=== PATIENT | male | born 1975 | race African-American/Black ===

== ENCOUNTER 2019-07-01 03:46 | Inpatient (IN) | payer OTHER ==
[~2019-07-01] VITALS: Ht 165.1 cm; Wt 115.7 kg
--- NOTE | ~2019-07-01 | EMS ---
[address] [address] EMS Patient Care Report Name: VI HERNÁNDEZ Room #: 170-9 ADM IN M.R.#: [id number] Admission: 07/01/19 Attend Phys: Fidelina Haddad MD Discharge: Date of : 75 Report #: [id number] THIS REPORT FOR: //name// Report Transmitted: 07/01/2019 05:03 EMS Care Summary [place], [place]/[facility] Incident [id number] @ 07/01/2019 03:02 Incident Location [id number] [place] [address] 105 A Patient VI HERNÁNDEZ Male, 43 Years 1975 Patient Address [address] [place] [address] [place] [address] Patient History Diabetes,Hypertension,Schizophrenia,Hypothyroidism, Patient Allergies No known allergies, Patient Medications Glipizide, Gabapentin, Lisinopril, Levothyroxine, Metoprolol, Famotidine, Divalproex Sodium, Benztropine, Sertraline, Aspirin, Clonazepam, Lorazepam, Haloperidol, Ferrous Sulfate, Chief Complaint ABNORMAL LABS, DIARRHEA Disposition Transported No Lights/[place] Dispatch Reason Sick Person Transported To [facility] Narrative PT FOUND LYING IN BED. STAFF STATES PT HAS ABNORMAL LABS, HAS HAD DIARRHEA AND [address] [address] EMS Patient Care Report Name: VI HERNÁNDEZ Room #: 170-9 ADM IN M.R.#: [id number] Admission: 07/01/19 Attend Phys: Fidelina Haddad MD Discharge: Date of : 75 Report #: [id number] HAD AN SPO2 OF 87%. PT FOUND TO HAVE SPO2 OF 97%. PT DENIES OTHER COMPLAINTS. TRANSPORTED WITHOUT INCIDENT. Initial Vitals @03:32P: 124,R: 18,BP: 110/60,Pain: 0/10,GCS: 14,SpO2: 97,Revised Trauma: 12, Assessments @03:24MENTAL:No Abnormalities,SKIN:No Abnormalities,HEENT:Head/Face: No Abnormalities,Eyes: No Abnormalities,Neck/Airway: No Abnormalities,LUNG SOUNDS:ABDOMEN:PELVIS//GI:EXTREMITIES:PULSE:NEURO:No Abnormalities, Impression Generalized Weakness Procedures @03:24ALS AssessmentResponse: UnchangedSucceeded Timeline 03:00,Call Received 03:00,Dispatch Notified 03:02,Dispatched 03:05,En Route 03:21,On Scene 03:24,At Patient 03:24,ALS Assessment,Response: UnchangedSucceeded, 03:32,BP: 110/60 M,PULSE: 124,RR: 18 R,SPO2: 97 Ox,ETCO2: ,BG: ,PAIN: 0,GCS: 14, 03:34,Depart Scene 03:41,At Destination 03:51,Call Closed Disclaimer v1.1 Copyright 2019 [email or web address] This EMS Care Summary contains data elements from the applicable legal record (which may be displayed differently). It is designed to provide pertinent information for the following purposes: continuity of care, clinical quality, and state data reporting. The complete legal record is available to ED staff and administrators of the receiving hospital in [facility]'s Patient Tracker. All data is provided "as is."
[~2019-07-01 03:46] MED LIST: ACETAMINOPHEN325 M1 PO; ASPIRIN325 PO; BENZTROPINE MES1 MG PO; CALCIUM 500 WI1 EAC3 PO; CENTRUM SILVER1 EAC4 PO; CLOZAPINE100 M1 PO; CLOZAPINE25 MG PO; DEPAKOTE ER500 MG PO; DIABETA 5MG TABL5 MG PO; DIPHENHIST50 MG PO; FAMOTIDINE 20 M20 MG PO; FERROUS SULFAT325 M1 PO; HAIR, SKIN & N1 EAC1; HALOPERIDOL10 MG PO; HYDROXYZINE PAM25 M1 PO; IBUPROFEN 600600 M1 PO; LEVOTHYROXIN0.125 M1 PO; LOPRESSOR25 PO; LORAZEPAM 1 MG T1 M1 PO; LORAZEPAM 1 MG T1 MG PO; MAGOX 400400 MG PO; METOPROLOL SUCC25 M1 PO; MI ACID LIQUID355 ML PO; MIRALAX255 GM PO; NEURONTIN 300M300 M2 PO; ONE DAILY MULT1 EAC2 PO; SEROQUEL 25 MG25 M1 PO; SEROQUEL 25 MG25 M2 PO; TUMS PO; ZESTRIL10 MG PO
[2019-07-01 03:47] VITALS: BP 117/59
[2019-07-01 04:25] LABS: BE(vivo) -1.7 mmol/L (-2 to +3); HCO3 20.4 mmol/L (22.0-26.0); PCO2 27.4 mmHg (35.0-45.0); PO2 70.3 mmHg (80.0-100.0); pH 7.489 (7.360-7.450); sO2 95.5 % (92.0-98.0)
[2019-07-01 04:55] LABS: HEMOGLOBIN 12.3 gm/dL (14.0-18.0); MCH 27.1 pg (26.0-34.0); MCHC 33.1 g/dL (28.0-37.0); MCV 81.8 fL (80.0-100.0); PLATELET COUNT 64 thou/uL (150-400); RBC 4.52 mil/uL (4.50-6.00); RDW 15.7 % (10.5-14.5); WBC 9.4 thou/uL (4.0-11.0)
[2019-07-01 04:56] LABS: URINE BILIRUBIN 1+ (Negative); URINE BLOOD 3+ (Negative); URINE CLARITY CLOUDY; URINE COLOR YELLOW; URINE GLUCOSE-RANDOM* NEGATIVE (Negative); URINE KETONES TRACE (Negative); URINE NITRITE-REFLEX NEGATIVE (Negative); URINE PROTEIN (DIPSTICK) 2+ (Negative); URINE SPECIFIC GRAVITY 1.015 (1.005-1.035); URINE UROBILINOGEN 0.2 E.U./dl (0.2-1.0)
[2019-07-01 05:05] LABS: AMP/METHAMP Negative (Negative); BARBITURATES Negative (Negative); BENZODIAZEPINES Negative (Negative); COCAINE Negative (Negative); METHADONE Negative (Negative); OPIATES Negative (Negative); PCP Negative (Negative)
[2019-07-01 05:07] LABS: ANION GAP 15 mmol/L (7-16); BUN 23 mg/dL (7-18); CALCIUM 8.4 mg/dL (8.5-10.1); CHLORIDE 108 mmol/L (98-107); CO2 19 mmol/L (21-32); CREATININE 1.8 mg/dL (0.7-1.3); GLUCOSE 104 mg/dL (74-106); POTASSIUM 3.6 mmol/L (3.5-5.1); SODIUM 142 mmol/L (136-145)
[2019-07-01 05:07] LABS: URINE LEUKOCYTES-REFLEX 2+ (Negative)
[2019-07-01 05:18] LABS: ALBUMIN 2.6 g/dL (3.4-5.0); SGOT 63 U/L (15-37); SGPT 32 U/L (30-65); TOTAL BILIRUBIN 0.6 mg/dL (<0.1-1.0); TOTAL PROTEIN 6.7 g/dL (6.4-8.2); TROPONIN-I <0.06 ng/mL (<0.06)
[2019-07-01 05:33] LABS: BACTERIA-REFLEX >30 Many /HPF (None Seen); CRYSTALS None Seen /LPF (None Seen); HYALINE CASTS 0-3 Few /LPF (None Seen); MUCUS 4-6 Moderate strn/LPF (None Seen); SQUAMOUS 0-3 Few /LPF (0-3); URINE RBC 3-10 Few /HPF (0-2); WBC CLUMPS Few (None Seen)
[2019-07-01] MEDS ORDERED: LUPRON DEPOT3.75 MG IM (05:45)
[2019-07-01] MEDS ORDERED: NYSTATIN15 G1 TOP (05:46)
[2019-07-01] MEDS ORDERED: PREPARATION H26 GM TOP (05:47)
[2019-07-01] MEDS ORDERED: SERTRALINE HCL100 MG PO (05:51)
[2019-07-01] MEDS ORDERED: ELIQUIS2.5 MG PO (05:52)
[2019-07-01] MEDS ORDERED: GLIPIZIDE 10 MG10 MG PO (05:53)
[2019-07-01] MEDS ORDERED: LEVO-T100 MCG PO (05:54)
[2019-07-01 07:05] VITALS: BP 110/68
[2019-07-01 08:03] LABS: ABSOLUTE NEUTROPHILS 7.3 thou/uL (1.4-8.2); ANISOCYTOSIS 1+
--- NOTE | 2019-07-01 08:09 | EKG ---
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
--- NOTE | 2019-07-01 15:35 | NUR ---
PT ADMITED FROM ER. ALERT AND ORIENTED TO SELF. VERY RESTLESS. ORDERS NOTED. FALL PRECAUTION IMPLEMENTED. CONTACT ISOLATION ENFORCED. ST ON TELE. IV ABX GIVEN ORDERED. WILL CONTINUE TO MONITOR.
[2019-07-01 15:40] VITALS: BP 116/59
--- NOTE | 2019-07-01 18:32 | NUR ---
VAT CONSULTED FOR A PICC FOR THIS PT FOR SEPSIS. A 4FRDBLPICC PLACED RUABRACHIAL, TIP AT THE CAJ, PLEASE SEE THE INSERTION NI FOR DETAILS
[2019-07-01 19:55] VITALS: BP 126/72
[2019-07-02] VITALS (7 sets, daily range): BP systolic 99–135; BP diastolic 54–116
[2019-07-02 05:25] LABS: WBC 6.4 thou/uL (4.0-11.0)
[2019-07-02 05:27] LABS: HEMATOCRIT 29.3 % (42.0-52.0); MCH 27.2 pg (26.0-34.0); MCHC 32.9 g/dL (28.0-37.0); MCV 82.8 fL (80.0-100.0); PLATELET COUNT 47 thou/uL (150-400); RBC 3.55 mil/uL (4.50-6.00); RDW 16.1 % (10.5-14.5)
--- NOTE | 2019-07-02 05:39 | NUR ---
SHIFT NOTE: PATIENT RECEIVED IN BED AT 1900 DURING SHIFT CHANGE. NOTED DROWSEY. PER THE DAY NURSE SOME MEDS DURING THE DAY DUE TO AGITATION. ST ON THE MONITOR FOR THIS NIGHT. SUPERINTENDENT POWER PAGED AND ORDER FOR METOPROLOL X1 WITH SOMEWHAT EFFECT.NO OTHER CONCERN. MORNING MEDS HELD AND SUPERINTENDENT POWER NOTIFIED FOR PT NOTED HARD TO AROUSE. FALL PRECAUTIONS IN PLACE. WILL CONTINUE TO MONITOR.
[2019-07-02 05:52] LABS: CALCIUM 7.4 mg/dL (8.5-10.1); CREATININE 1.4 mg/dL (0.7-1.3); MAGNESIUM 1.7 mg/dL (1.8-2.4)
[2019-07-02 06:00] LABS: HEMOGLOBIN 9.6 gm/dL (14.0-18.0)
[2019-07-02 08:56] LABS: ABSOLUTE NEUTROPHILS 4.8 thou/uL (1.4-8.2); METAMYELOCYTES 1 %; PLATELET ESTIMATE MARKEDLY DECREASED
[2019-07-02 08:57] LABS: LARGE PLATELETS FEW
--- NOTE | 2019-07-02 09:48 | 2DMMODE ---
[facility] [address] [place] [address] 2 D/M-MODE ECHOCARDIOGRAM Name: VI HERNÁNDEZ Room #: 203-P ADM IN M.R.#: [id number] Admission: 07/01/19 Attend Phys: Glen Friend Discharge: Date of : 75 Report #: [id number] THIS REPORT FOR: //name// APPROVED REPORT Study performed: 07/02/2019 08:25:15 EXAM: Comprehensive 2D, Doppler, and color-flow Echocardiogram Patient Location: Bedside Room #: 203 Status: routine BSA: 2.19 HR: 103 bpm BP: 126/72 mmHg Rhythm: Tachycardia Other Information Study Quality: Adequate Technically limited study due to inability to position patient. Risk Factors: Cardiac Risk Factors: HTN, DM, Hyperlipidemia, Smoking Indications Dyspnea Evaluate for CHF 2D Dimensions IVSd: 11.12 (7-11mm) LVOT Diam: 23.00 (18-24mm) LVDd: 42.25 mm PWd: 10.89 (7-11mm) Ascending Ao: 27.65 (22-36mm) LVDs: 28.59 (25-40mm) Aortic Root: 27.08 mm LV Single Plane 4CH: 60.61 % LV Single Plane 2CH: 61.32 % Biplane EF: 61.7 % Volumes Left Atrial Volume (Systole) Single Plane 4CH: 34.78 mL Single Plane 2CH: 38.64 mL LA ESV Index: 22.00 mL/m2 Aortic Valve [facility] [address] [place] [address] 2 D/M-MODE ECHOCARDIOGRAM Name: BETTYIV Room #: 203-P ADM IN M.R.#: [id number] Admission: 07/01/19 Attend Phys: Glen Friend Discharge: Date of : 75 Report #: [id number] AoV Peak Narinder.: 1.58 m/s AO Peak Gr.: 10.01 mmHg Mitral Valve E/A Ratio: 1.2 MV Decel. Time: 189.51 ms MV E Max Narinder.: 1.04 m/s MV A Narinder.: 0.88 m/s MV PHT: 54.96 ms IVRT: 48.44 ms TDI E/Lateral E': 9.45 E/Medial E': 10.40 Medial E' Narinder.: 0.10 m/s Lateral E' Narinder.: 0.11 m/s Pulmonary Valve PV Peak Narinder.: 1.31 m/s PV Peak Gr.: 6.90 mmHg Pulmonary Vein P Vein S: 0.77 m/s P Vein A: 0.30 m/s P Vein D: 0.42 m/s P Vein A Dur.: 62.3 msec P Vein S/D Ratio: 1.83 Left Ventricle The left ventricle is normal size. There is normal LV segmental wall motion. Borderline concentric left ventricular hypertrophy. Left ventricular systolic function is normal. The left ventricular ejection fraction is within the normal range. LVEF is 60-65%. The left ventricular diastolic function is normal. Right Ventricle The right ventricle is normal size. The right ventricular systolic function is normal. Atria The left atrium size is normal. The right atrium size is normal. Aortic Valve The aortic valve is normal in structure. No aortic regurgitation is present. There is no aortic valvular stenosis. Mitral Valve The mitral valve is normal in structure. Trace mitral regurgitation. No evidence of mitral valve stenosis. [facility] [address] [address] 2 D/M-MODE ECHOCARDIOGRAM Name: VI HERNÁNDEZ Room #: 203-P ADM IN M.R.#: [id number] Admission: 07/01/19 Attend Phys: Glen Friend Discharge: Date of : 75 Report #: [id number] Tricuspid Valve The tricuspid valve is normal in structure. There is no tricuspid valve regurgitation noted. Pulmonic Valve The pulmonary valve is normal in structure. There is no pulmonic valvular regurgitation. Great Vessels The aortic root is normal in size. The ascending aorta is normal in size. IVC is not well visualized. Pericardium There is no pericardial effusion. <Conclusion> 1. Normal echocardiogram with Doppler. EF 65% 2. No pericardial effusion <ELECTRONICALLY SIGNED> By: Dean Sal MD, FACC 07/02/1948 7 7 Dean Sal MD, [facility] /INF
--- NOTE | 2019-07-02 11:12 | NUR ---
Nutrition: pt admitted with acute respiratory failure, PNA, diarrhea. Consult received for physician dx malnutrition-defer. Sleeping at present time but nsg reports unable to interview. Extensive psych hx, schizophrenia. Confused. No weight hx but current BMI 42, indicates extreme class 3 obesity. Per nsg when pt awake, he cleans his plate. Currently on regular diet with hx of DM but BG controlled at present. Would benefit from 2000 carb controlled diet to assist with calorie control as well. Place as low nutrition risk.
--- NOTE | 2019-07-02 15:18 | NUR ---
ASSESSMENT CHARTED. PT ORIENTED TO SELF. HAS BEEN SLEEPING MOST OF THE SHIFT. WORKED WITH PHYSICAL THERAPIST. FALL PRECAUTION ENFORCED. WILL CONTINUE TO MONITOR.
--- NOTE | 2019-07-02 19:01 | HC ---
[facility] [place] [address] CONSULTATION Name: VI HERNÁNDEZ Room #: 203-P [facility] IN .R.#: [id number] Admission: 07/01/19 Attend Phys: Fidelina Haddad MD Discharge: Date of : 75 Report #: [id number] THIS REPORT FOR: //name// CC: Fidelina Ernst DATE OF SERVICE: 07/01/2019 INFECTIOUS DISEASE CONSULTATION REASON FOR CONSULTATION: I was asked to evaluate concerning sepsis. HISTORY OF PRESENT ILLNESS: The patient was a 43-year-old [facility] resident transfers with complaints of diarrhea, found to be hypoxic and delirious. Brought into the Emergency Room. He has a history of schizophrenia, diabetes, hypertension. Further details are not available. Discussed with nursing at the bedside. The patient was obtunded. Did arouse, but not able to follow any commands. He has been incontinent of the stool. There has been no cough or sputum production. He has been on room air with adequate oxygen saturation. Full 10-point review of system was unable to be obtained due to his mental status. ALLERGIES: None known. MEDICATIONS: Reviewed and include Tylenol, Seroquel, aspirin, Pepcid, iron, Zestril, Depakote, MiraLax, Cogentin, allopurinol, lorazepam, Neurontin, Seroquel, multivitamin, calcium, clonazepam, metoprolol, ibuprofen, Lupron, sertraline, Eliquis, glipizide, levothyroxine. PAST MEDICAL HISTORY: Diabetes, depressive disorder, schizophrenia, hyperlipidemia, hypertension, hypothyroidism, BPH. Unclear why he is on Lupron, not evident in his past medical history. FAMILY HISTORY: Noncontributory. SOCIAL HISTORY: He is a smoker of cigarettes, uses alcohol, no other drugs reported. PHYSICAL EXAMINATION: VITAL SIGNS: His temperature was 103 degrees on presentation, currently 100.1, heart rate 121, blood pressure 126/72, respiratory rate was 20. GENERAL: He was obese. SKIN: Without lesion. Although he did have hypertrophic skin involving his left third toe and metatarsal region on the second toe and dorsal surface of the metatarsal region. No purulent discharge. No other skin lesions. No palpable [facility] [address] [place] [address] CONSULTATION Name: VI HERNÁNDEZ Room #: 203-P [facility] IN ..#: [id number] Admission: 07/01/19 Attend Phys: Fidelina Haddad MD Discharge: Date of : 75 Report #: [id number] adenopathy. HEENT: Eyes, without scleral icterus. Mouth without mucositis. Dentition in very poor repair. Multiple fractured teeth with evidence of dental caries. NECK: Supple. LUNGS: Clear. HEART: Regular, without murmur, gallop or rub. He was tachycardic. ABDOMEN: Soft and nontender with no hepatosplenomegaly or mass. Could not appreciate any spinal tenderness or CVA tenderness. GENITOURINARY: External genitalia unremarkable without mass or lesion. RECTAL: Not performed. He was incontinent of loose stool. EXTREMITIES: Without clubbing, cyanosis or edema. He moved all extremities. Strength appeared reasonable. Mood was obtunded, but would arouse. LABORATORY STUDIES: Reviewed. WBC 9. Hemoglobin 12, platelet count 64,000, 10% bands. ABG on room air, pO2 of 70, pCO2 of 27, pH 7.48. Sodium 142, potassium 3.6, bicarb 19, creatinine 1.8, bilirubin 0.6, AST 63, ALT 32. CPK 700. Troponin normal. Albumin at 2.6. Drug screen negative. Alcohol negative. Urinalysis, pyuria and bacteriuria. MRSA screen negative. RADIOLOGICAL STUDIES: Chest x-ray, basilar atelectasis. IMPRESSION: A 43-year-old with suspected sepsis, although his white count is normal. He does have a bandemia. He has encephalopathy in the setting of depression and schizophrenia, thrombocytopenia, acute kidney injury, rhabdomyolysis, elevated procalcitonin at 3.9. Evidence of urinary tract infection, hypoxia with basilar atelectasis and diarrhea. Unclear how Lupron fits into the treatment plan. I am suspecting the source of infection would be most likely urinary tract. RECOMMENDATIONS: CT of the abdomen and pelvis to assess for diarrhea and urinary tract to ensure no obstruction. Continue IV antibiotic therapy, fluid resuscitation, place Urbina catheter to further evaluate his urine output. Hold his Lupron until further information is gathered as to its purpose. Await cultures of urine and blood. I have discussed with nursing staff. We will follow laboratory studies repeat in the morning. <ELECTRONICALLY SIGNED> By: Mando Rudolph MD 07/02/191900 27 140 Mando Rudolph MD /nt
--- NOTE | 2019-07-03 05:06 | NUR ---
SHIFT NOTE: PATIENT RECEIVED IN BED. ALERT TO SELF. SLEEPING FOR THE MOST PART OF THE NIGHT BUT HAD SOME RESTLESSNESS WITH TREATMENT PER THE ORDER AND NOTED EFFECT. VITAL SIGN ORDERED WITH NO MAJOR CONCERN. PT REMOVED THE POPE AND HAD TO BE REPLACED AND TOLERATED WELL. NO OTHER CONCERN OR COMPLAINT. WILL CONTINUE WITH CURRENT POC AND TO MONITOR.
[2019-07-03 05:50] VITALS: BP 115/68
[2019-07-03 08:00] VITALS: BP 135/69
[2019-07-03 10:42] VITALS: BP 132/75
[2019-07-03 10:52] LABS: HEMATOCRIT 30.8 % (42.0-52.0); HEMOGLOBIN 9.9 gm/dL (14.0-18.0)
--- NOTE | 2019-07-03 13:59 | NUR ---
Case opened to follow for dc planning. Pt is a ltc resident at [facility]. He is disabled due to mental health issues and has a legal guardian for decision making. His guardian is the [facility] Public Administator. Large Animal Veterinarian has left a message in their general voice mail and with their in day cm to advise of possible dc back to the [facility] tomorrow. Message left for [facility] unit nurses regarding the pt's likely dc tomorrow. Large Animal Veterinarian attempted again this afternoon to contact his nurse directly but had to leave the message on the [facility] unit voicemail. Care team updated. Pt worked with therapy and can [place]
[2019-07-03 14:50] LABS: CALCIUM 8.2 mg/dL (8.5-10.1); CREATININE 1.2 mg/dL (0.7-1.3); POTASSIUM 3.7 mmol/L (3.5-5.1)
--- NOTE | 2019-07-03 15:08 | NUR ---
ASSESSMENT CHARTED. PT ALERT TO SELF. VSS. ST ON TELE. EVALUATED BY PHYSICAL THERAPIST. POPE D/C. APPETITE GOOD. PROGRESSING WELL TOWARD DISCHARGE GOAL. WILL CONTINUE TO MONITOR.
[2019-07-03 16:00] VITALS: BP 98/75
[2019-07-03 20:10] VITALS: BP 135/67
[2019-07-04 01:10] LABS: GLYCOHEMOGLOBIN (HGB A1C) 5.9 % (4.8-5.6)
--- NOTE | 2019-07-04 02:53 | NUR ---
CONFUSED.TRYING TO GET OUT OF BED SEVERAL TIMES AND VOIDED ON THE FLOOR.FEBRILE.TYLENOL GIVEN.BEDTIME BLOOD GLUCOSE IS 150;NO COVERAGE GIVEN.MONITOR SHOWS SR,ST.WILL CONTINUE POC.
[2019-07-04 03:15] LABS: HEMOGLOBIN 9.3 gm/dL (14.0-18.0); MCH 26.3 pg (26.0-34.0); MCHC 32.2 g/dL (28.0-37.0); MCV 81.8 fL (80.0-100.0); PLATELET COUNT 64 thou/uL (150-400); RBC 3.55 mil/uL (4.50-6.00); RDW 16.1 % (10.5-14.5); WBC 6.6 thou/uL (4.0-11.0)
[2019-07-04 03:53] LABS: ANISOCYTOSIS 1+; LARGE PLATELETS SEVERAL; PLATELET ESTIMATE DECREASED
[2019-07-04 05:36] VITALS: BP 120/83
[2019-07-04 07:05] VITALS: BP 131/85
[2019-07-04 11:45] VITALS: BP 118/63
--- NOTE | 2019-07-04 16:54 | NUR ---
ASSUMED CARE PT SHIFT CHANGE. ASSESSMENTS CHARTED. MEDS GIVEN PER OCT. PT ALERT TO SELF ONLY, CONFUSED, IMPULSIVE. TRIES TO GET OUT OF BED/CHAIR WITHOUT HELP. FALL PRECAUTIONS IN PLACE THROUGHOUT DAY. REORIENTED FREQUENTLY. PT PULLED PICC LINE OUT- IV TEAM NOTIFIED, PERIPHERAL PUT IN AND WRAPPED, IV CONTINUES TO BE IN. O2 SATS WNL ON ROOM AIR AND 2L O2. PT LOW 90S HIGH 80S- 2 L PUT ON, BUT SATS 92 AND ABOVE ON ROOM AIR. PT HAD INCONTINENT BM THIS SHIFT- SAMPLE SENT. PT CURRENTLY SITTING IN CHAIR WITH NO APPARENT NEEDS. WILL CONTINUE TO MONITOR AND FOLLOW POC.
[2019-07-04 19:26] VITALS: BP 132/76
--- NOTE | 2019-07-05 03:03 | NUR ---
CONFUSED.ON 1:1 SITTER.PATIENT HAS BEEN SLEEPING.REFUSED THE MIDNIGHT MEDS.O2 2L NC NEEDED.AFEBRILE.INCONTINENT.MONITOR SHOWS SR,ST.WILL CONTINUE POC.
[2019-07-05 04:55] VITALS: BP 148/62
[2019-07-05 07:23] LABS: ALBUMIN 1.8 g/dL (3.4-5.0); CALCIUM 8.2 mg/dL (8.5-10.1); CREATININE 1.1 mg/dL (0.7-1.3); POTASSIUM 3.4 mmol/L (3.5-5.1); TOTAL BILIRUBIN 0.5 mg/dL (<0.1-1.0); TOTAL PROTEIN 5.9 g/dL (6.4-8.2)
[2019-07-05 07:24] LABS: HEMATOCRIT 29.3 % (42.0-52.0); HEMOGLOBIN 9.4 gm/dL (14.0-18.0); MCH 26.4 pg (26.0-34.0); MCHC 32.3 g/dL (28.0-37.0); MCV 81.9 fL (80.0-100.0); RBC 3.57 mil/uL (4.50-6.00); WBC 7.7 thou/uL (4.0-11.0)
[2019-07-05 08:00] VITALS: BP 139/91
[2019-07-05 08:53] LABS: ABSOLUTE NEUTROPHILS 5.4 thou/uL (1.4-8.2)
[2019-07-05 08:54] LABS: ANISOCYTOSIS 1+; PLATELET COUNT 85 thou/uL (150-400)
--- NOTE | 2019-07-05 10:40 | NUR ---
Pt was sleeping. Hard to arousable. Did not take morning pill or eat breakfast. Temp 99 A. Will continue to monitor.
[2019-07-05 12:00] VITALS: BP 144/72
[2019-07-05 15:44] VITALS: BP 101/57
[2019-07-05 20:15] VITALS: BP 137/73
[2019-07-06 04:45] VITALS: BP 125/60
--- NOTE | 2019-07-06 07:17 | NUR ---
ASSUMED PT CARE AT 1900, VSS. PT WAS DROWSY BUT AROUSABLE AND FOLLOWS COMMANDS. PT SLEPT MOST OF THE NIGHT, THERE WAS A MOMENT HE REFUSED TELE MONITORING FOR A COUPLE HOURS BUT AGREED TO GET IT BACK ON AROUND 3AM. DUE TO PT'S INCONTINENCE, AN EXTERNAL MALE CATH WAS PLACED AND HE HAD 900ML OUT. PT IS STABLE, NO COMPLAINTS OF PAIN OR DISCOFORT, MEDS GIVEN PER MAR, WILL CONTINUE TO MONITOR
[2019-07-06 08:00] VITALS: BP 133/79
--- NOTE | 2019-07-06 09:16 | NUR ---
PATIENT CARE ASSUMED, ASSESSMENT CHARTED, VSS, PATIENT DROWSEY, DIFFICULT TO ROUSE. STATES NO NEEDS, WILL CONTINUE TO MONITOR.
[2019-07-06 11:42] LABS: HEMATOCRIT 30.3 % (42.0-52.0); HEMOGLOBIN 9.8 gm/dL (14.0-18.0); MCH 26.9 pg (26.0-34.0); MCHC 32.4 g/dL (28.0-37.0); MCV 83.2 fL (80.0-100.0); RBC 3.65 mil/uL (4.50-6.00); RDW 16.3 % (10.5-14.5); WBC 15.5 thou/uL (4.0-11.0)
[2019-07-06 11:48] VITALS: BP 118/59
[2019-07-06 11:57] LABS: CALCIUM 8.5 mg/dL (8.5-10.1); MAGNESIUM 1.7 mg/dL (1.8-2.4); POTASSIUM 3.5 mmol/L (3.5-5.1)
[2019-07-06 20:45] VITALS: BP 133/80
[2019-07-07 04:45] VITALS: BP 128/71
[2019-07-07 04:49] LABS: ALBUMIN 1.8 g/dL (3.4-5.0); CREATININE 0.9 mg/dL (0.7-1.3); MAGNESIUM 1.5 mg/dL (1.8-2.4); POTASSIUM 3.5 mmol/L (3.5-5.1); TOTAL BILIRUBIN 0.3 mg/dL (<0.1-1.0); TOTAL PROTEIN 5.3 g/dL (6.4-8.2)
--- NOTE | 2019-07-07 05:07 | NUR ---
ASSUMED PT CARE AT 1900 WITH CLIMATOLOGY PROFESSOR SIGN OF DISTRESS NOTED. PT IS ALERT BUT DROWSY. NO FAMILY AT BEDSIDE. ASSESSMENT COMPLETED AND DOCUMENTED. NO SIGN OF DISTRESS NOTED IN PT. PT IS STABLE. SCHEDULED MEDS ADMINISTERED TO PT. PT TOLERATED PO INTAKE. NO FURTHER NEEDS REQUESTED AT THIS TIME.
[2019-07-07 05:40] LABS: HEMATOCRIT 27.9 % (42.0-52.0); MCH 26.9 pg (26.0-34.0); MCHC 32.1 g/dL (28.0-37.0); MCV 83.6 fL (80.0-100.0); PLATELET COUNT 149 thou/uL (150-400); RBC 3.34 mil/uL (4.50-6.00); RDW 16.6 % (10.5-14.5); WBC 7.4 thou/uL (4.0-11.0)
[2019-07-07 06:56] LABS: ABSOLUTE NEUTROPHILS 4.1 thou/uL (1.4-8.2)
[2019-07-07 06:57] LABS: ANISOCYTOSIS 1+; PLATELET ESTIMATE DECREASED; POIKILOCYTOSIS 1+
[2019-07-07] MEDS ORDERED: AUGMENTIN 875-1 EACH PO (07:46)
[2019-07-07 08:00] VITALS: BP 126/85
--- NOTE | 2019-07-07 12:16 | NUR ---
PT DISCHARGING TODAY TO [facility] FAXED DC ORDERS/SUMMARY TO FACILITY SPOKE WITH CLEMENTE IN ADM SHE RECEIVED DC ORDERS AND ARRANGED TRANSPORTATION BY [facility] FOR 1400 TODAY. NOTIFIED THE PA'S OFFICE (ROOSEVELT WINTER) OF DC TODAY., UNIT NOTIFIED AND CHART COPY PER US. RN TO CALL REPORT TO [phone].
== END 2019-07-07 14:43 | DRG 871 ==
LOC: ER 03:46 → EROBS 05:23 → 2N 05:23
PROVIDERS: Internal Medicine; Nurse Practitioner; Specialist; Student in an Organized Health Care Education/Training Program; ADMIT Hospitalist
PROC: 02HV33Z Insertion of Infusion Device into Superior Vena Cava, Percutaneous Approach (ICD-10-PCS; principal; 2019-07-01)
PROC: B548ZZA Ultrasonography of Superior Vena Cava, Guidance (ICD-10-PCS; principal; 2019-07-01)
DX: A41.9 Sepsis, unspecified organism (principal); G93.41 Metabolic encephalopathy; J96.01 Acute respiratory failure with hypoxia; J18.9 Pneumonia, unspecified organism; N39.0 Urinary tract infection, site not specified; N17.9 Acute kidney failure, unspecified; M62.82 Rhabdomyolysis; E87.0 Hyperosmolality and hypernatremia; E87.2 Acidosis; E44.0 Moderate protein-calorie malnutrition; Z68.41 Body mass index [BMI] 40.0-44.9, adult; F32.9 Major depressive disorder, single episode, unspecified; F20.9 Schizophrenia, unspecified; E78.5 Hyperlipidemia, unspecified; E03.9 Hypothyroidism, unspecified; F17.210 Nicotine dependence, cigarettes, uncomplicated; N40.0 Benign prostatic hyperplasia without lower urinary tract symptoms; D69.6 Thrombocytopenia, unspecified; I12.9 Hypertensive chronic kidney disease with stage 1 through stage 4 chronic kidney disease, or unspecified chronic kidney disease; E11.22 Type 2 diabetes mellitus with diabetic chronic kidney disease; R65.20 Severe sepsis without septic shock; N18.3 Chronic kidney disease, stage 3 (moderate); D64.9 Anemia, unspecified; E87.8 Other disorders of electrolyte and fluid balance, not elsewhere classified; E87.6 Hypokalemia; E83.42 Hypomagnesemia; E83.51 Hypocalcemia; K52.9 Noninfective gastroenteritis and colitis, unspecified; B96.89 Other specified bacterial agents as the cause of diseases classified elsewhere; B96.4 Proteus (mirabilis) (morganii) as the cause of diseases classified elsewhere; Z79.899 Other long term (current) drug therapy; Z79.82 Long term (current) use of aspirin; Z86.711 Personal history of pulmonary embolism; Z79.01 Long term (current) use of anticoagulants
CPT/HCPCS: 10081; 10797; 27000

== ENCOUNTER 2020-12-08 17:58 | Inpatient (IN) | payer OTHER ==
[~2020-12-08] VITALS: Ht 172.7 cm; Wt 121.1 kg
--- NOTE | ~2020-12-08 | O ---
[facility] [place] [address] OPERATIVE REPORT Name: VI HERNÁNDEZ Room #: 239-P ADM IN M.R.#: [id number] Admission: 12/09/20 Attend Phys: Keily Garrison Lui Discharge: Date of : 75 Report #: [id number] THIS REPORT FOR: cc: Miguel Bello MD, Dennis R MD Patterson,Manuel Sykes MD ~ DATE OF SERVICE: 12/09/2020 PREOPERATIVE DIAGNOSIS: Left arm cellulitis. POSTOPERATIVE DIAGNOSIS: Left arm cellulitis. OPERATION: Incision and drainage of left arm. SURGEON: Manuel Castillo MD ANESTHESIA: General. ESTIMATED BLOOD LOSS: Minimal. SPECIMEN: Fluid for culture and sensitivity. DESCRIPTION OF PROCEDURE: The patient was brought to the operating room. He was placed supine. General anesthesia was induced. The left arm was prepped and draped in the usual sterile fashion. I made an approximately 6 cm incision over the left mid bicep. Cautery dissection was made down through the subcutaneous tissue. I made my way down to the fascia. There was no evidence of any necrotizing infection. There was no turbid or foul-smelling fluid. There was no abscess. I did culture some of the edema that was involved. The fascia at the biceps was incised and there was no necrotic tissue anywhere. This was fairly normal. The area was then irrigated with normal saline. It was packed with sterile gauze. Sterile dressings were applied. COMPLICATIONS: None. DISPOSITION: The patient was taken to recovery in satisfactory condition. By: 13 26 Manuel Castillo MD /nt
[~2020-12-08 17:58] MED LIST changes: +AUGMENTIN 875-1 EACH PO; +ELIQUIS2.5 MG PO; +GLIPIZIDE 10 MG10 MG PO; +LEVO-T100 MCG PO; +LUPRON DEPOT3.75 MG IM; +NYSTATIN15 G1 TOP; +PREPARATION H26 GM TOP; +SERTRALINE HCL100 MG PO
[2020-12-08 18:00] VITALS: BP 97/48
[2020-12-08 20:39] LABS: HEMATOCRIT 36.8 % (42.0-52.0); HEMOGLOBIN 12.2 gm/dL (14.0-18.0); MCH 27.9 pg (26.0-34.0); MCHC 33.1 g/dL (28.0-37.0); MCV 84.2 fL (80.0-100.0); RBC 4.37 mil/uL (4.50-6.00); RDW 14.9 % (10.5-14.5)
[2020-12-08 20:54] LABS: ANION GAP 7 mmol/L (7-16); BUN 42 mg/dL (7-18); CHLORIDE 107 mmol/L (98-107); CO2 27 mmol/L (21-32); CREATININE 3.4 mg/dL (0.7-1.3); GLUCOSE 109 mg/dL (74-106); MAGNESIUM 1.6 mg/dL (1.8-2.4); POTASSIUM 3.6 mmol/L (3.5-5.1); SALICYLATE < 2.8 mg/dL (2.8-20.0); SODIUM 141 mmol/L (136-145)
[2020-12-08 21:02] LABS: ALBUMIN 2.6 g/dL (3.4-5.0); SGOT 50 U/L (15-37); SGPT 58 U/L (30-65); TOTAL BILIRUBIN 0.6 mg/dL (0.2-1.0); TOTAL PROTEIN 6.9 g/dL (6.4-8.2); TROPONIN-I <0.06 ng/mL (<0.06)
[2020-12-08 21:35] LABS: ABSOLUTE NEUTROPHILS 9.7 thou/uL (1.4-8.2)
[2020-12-08 21:39] LABS: PLATELET COUNT 62 thou/uL (150-400)
[2020-12-08 21:40] LABS: LARGE PLATELETS FEW
[2020-12-08 21:41] LABS: ANISOCYTOSIS 1+; HYPOCHROMASIA 1+
[2020-12-08 22:30] LABS: URINE BILIRUBIN 1+ (Negative); URINE BLOOD 3+ (Negative); URINE CLARITY CLOUDY; URINE COLOR YELLOW; URINE GLUCOSE-RANDOM* NEGATIVE (Negative); URINE KETONES TRACE (Negative); URINE NITRITE-REFLEX NEGATIVE (Negative); URINE PROTEIN (DIPSTICK) 3+ (Negative); URINE UROBILINOGEN 0.2 E.U./dl (0.2-1.0)
[2020-12-08 22:32] LABS: URINE LEUKOCYTES-REFLEX 3+ (Negative)
[2020-12-08 22:38] LABS: CASTS None Seen /LPF (None Seen); CRYSTALS None Seen /LPF (None Seen); MUCUS 0-3 Light strn/LPF (None Seen); SQUAMOUS 0-3 Few /LPF (0-3); URINE RBC >20 Many /HPF (0-2); URINE WBC-REFLEX >25 Many /HPF (0-5); WBC CLUMPS Packed (None Seen)
[2020-12-08 22:40] LABS: AMP/METHAMP Negative (Negative); BARBITURATES Negative (Negative); BENZODIAZEPINES Negative (Negative); COCAINE Negative (Negative); METHADONE Negative (Negative); OPIATES Negative (Negative); PCP Negative (Negative)
[2020-12-09] VITALS (29 sets, daily range): BP systolic 101–156; BP diastolic 49–115
[2020-12-09] MEDS ORDERED: DEPAKOTE 250MG250 MG PO (01:08)
[2020-12-09] MEDS ORDERED: ELIQUIS2.5 MG PO (01:09)
[2020-12-09] MEDS ORDERED: HALOPERIDOL10 MG PO (01:11)
[2020-12-09 04:44] LABS: APTT 48.1 Seconds (24.5-32.8); INR 1.26; PROTIME 13.6 Seconds (9.3-11.4)
[2020-12-09 04:48] LABS: HEMATOCRIT 31.9 % (42.0-52.0); HEMOGLOBIN 10.4 gm/dL (14.0-18.0); MCH 27.6 pg (26.0-34.0); MCHC 32.7 g/dL (28.0-37.0); MCV 84.2 fL (80.0-100.0); RBC 3.79 mil/uL (4.50-6.00); RDW 14.5 % (10.5-14.5); WBC 8.7 thou/uL (4.0-11.0)
[2020-12-09 05:06] LABS: CALCIUM 6.6 mg/dL (8.5-10.1); CREATININE 2.8 mg/dL (0.7-1.3); POTASSIUM 3.1 mmol/L (3.5-5.1)
--- NOTE | 2020-12-09 06:09 | NUR ---
PT ARRIVED FROM ER TO 239 AT APPROVE 8455. PATIENT TRANSFERED FROM ER CART TO ICU BED WITH MINIMAL ASSITANCE. PATIENT ON RA, TACHYCARDIC, TACHYPNIC. SEE ICU VS CHARTING FOR MORE DETIALS. PATIENT IS ALERT TO SELF AND SITUATION INTERMITTENTLY. ADMISSION DATA BASE COMPLETED TO THE BEST OF THE PATIENTS COGNITIVE ABILITIES. PATIENT IS A [place] OF [place] STATE. LABS DRAWN, FLUIDS STARTED, CONSULTS CALLED. WILL CONTINUE TO MONITOR.
--- NOTE | 2020-12-09 06:44 | EKG ---
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 : 1975 Requested By: Jaret Schuster Order Number: [id number] MD: Fili Kaufman Measurements Intervals [place] Rate: 118 P: 13 VT: 150 QRS: 26 QRSD: 77 T: QT: 288 QTc: 404 Interpretive Statements Sinus tachycardia Borderline abnrm T, anterolateral leads Compared to ECG 07/01/2019 04:01:01 T-wave abnormality no longer present Electronically Signed On 12-09-2020 6:43:59 CDT by Fili Kaufman [email or web address] <ELECTRONICALLY SIGNED> By: Fili Kaufman MD, [facility] 12/09/20 0643 [id number] Fili Kaufman MD, FACC /EPI
--- NOTE | 2020-12-09 09:40 | NUR ---
chart review. cm provided verbal update to rylee riddle at [facility]. he has legal guardian. will cont following as needed for dc needs. no anticipated dc over weekend.
--- NOTE | 2020-12-09 11:19 | NUR ---
Assess due to admit with sepsis, REINA. Hx schizophrenia, DM, HTN, depression. [place]. Newly admitted so limited information. Chart reviewed and wt down 9 lb over 2 yrs. BMI is 33.4 obese. Usually eats well based on past admission. Low nutrition risk
--- NOTE | 2020-12-09 15:13 | 2DMMODE ---
[facility] [place] [address] 2 D/M-MODE ECHOCARDIOGRAM Name: VI HERNÁNDEZ Room #: 239-P ADM IN M.R.#: [id number] Admission: 12/09/20 Attend Phys: Keily Poe Discharge: Date of : 75 Report #: [id number] THIS REPORT FOR: cc: Miguel Bello MD, Dennis R MD Santiago, Patrick MD [facility] ~ APPROVED REPORT Study performed: 12/09/2020 14:06:14 EXAM: Comprehensive 2D, Doppler, and color-flow Echocardiogram Patient Location: ICU Room #: 239 Status: routine BSA: 2.33 HR: 120 bpm BP: 114/68 mmHg Rhythm: Sinus Tach Other Information Study Quality: Adequate Indications Tachycardia. Sepsis. Hx: DM, HLP, HTN. 2D Dimensions RVDd: 25.91 mm IVSd: 11.48 (7-11mm) LVOT Diam: 20.57 (18-24mm) LVDd: 48.24 mm PWd: 10.52 (7-11mm) Ascending Ao: 32.92 (22-36mm) LVDs: 32.65 (25-40mm) Aortic Root: 31.71 mm Volumes Left Atrial Volume (Systole) Single Plane 4CH: 26.02 mL Single Plane 2CH: 34.21 mL LA ESV Index: 14.00 mL/m2 Aortic Valve AoV Peak Narinder.: 1.52 m/s AO Peak Gr.: 9.27 mmHg LVOT Max P.76 mmHg LVOT Max V: 1.30 m/s DANIEL Vmax: 2.84 cm2 [facility] [address] [place] [address] 2 D/M-MODE ECHOCARDIOGRAM Name: VI HERNÁNDEZ Room #: 239-P [facility] IN [facility].#: [id number] Admission: 12/09/20 Attend Phys: Keily Escamilla Discharge: Date of : 75 Report #: [id number] Mitral Valve E/A Ratio: 0.7 MV Decel. Time: 112.24 ms MV E Max Narinder.: 0.61 m/s MV A Narinder.: 0.89 m/s MV PHT: 32.55 ms IVRT: 50.75 ms Pulmonary Valve PV Peak Narinder.: 1.00 m/s PV Peak Gr.: 3.99 mmHg Tricuspid Valve RAP Estimate: 10.00 mmHg Left Ventricle The left ventricle is normal size. There is normal LV segmental wall motion. There is normal left ventricular wall thickness. Left ventricular systolic function is normal. LVEF is 60-65%. Mild diastolic dysfunction is present. Right Ventricle The right ventricle is normal size. The right ventricular systolic function is normal. Atria The left atrium size is normal. The right atrium size is normal. Aortic Valve The aortic valve is normal in structure. No aortic regurgitation is present. There is no aortic valvular stenosis. Mitral Valve The mitral valve is normal in structure. There is no mitral valve regurgitation noted. No evidence of mitral valve stenosis. Tricuspid Valve The tricuspid valve is normal in structure. There is no tricuspid valve regurgitation noted. Unable to assess PA pressure. Pulmonic Valve Pulmonic valve is not well visualized. Great Vessels The aortic root is normal in size. The ascending aorta is normal in [facility] [address] [place] [address] 2 D/M-MODE ECHOCARDIOGRAM Name: VI HERNÁNDEZ Room #: 239-P [facility] IN .R.#: [id number] Admission: 12/09/20 Attend Phys: Keily Escamilla Discharge: Date of : 75 Report #: [id number] size. IVC measures at the upper limits of normal and collapses <50% with inspiration. Pericardium There is no pericardial effusion. <Conclusion> Normal left ventricular size/wall thickness Ejection fraction 60-65% Grade 1 diastolic dysfunction Normal right ventricular size/function Normal atrial size Color-flow Doppler study was performed of the aortic/mitral/tricuspid/pulmonary valve Normal aortic/mitral valve structure and function No evidence of tricuspid valve insufficiency, unable to assess pulmonary systolic pressure Normal aortic root size No no pericardial effusion <ELECTRONICALLY SIGNED> By: Fili Kaufman MD, [facility] 12/09/20 1512 151 1512 Fili Kaufman MD, FACC /INF
[2020-12-09 16:30] LABS: WBC 7.5 thou/uL (4.0-11.0)
[2020-12-09 16:31] LABS: HEMATOCRIT 30.4 % (42.0-52.0); HEMOGLOBIN 10.2 gm/dL (14.0-18.0); MCH 28.5 pg (26.0-34.0); MCHC 33.4 g/dL (28.0-37.0); MCV 85.2 fL (80.0-100.0); RBC 3.57 mil/uL (4.50-6.00); RDW 14.5 % (10.5-14.5)
[2020-12-09 16:44] LABS: CREATININE 2.2 mg/dL (0.7-1.3); POTASSIUM 3.7 mmol/L (3.5-5.1)
[2020-12-09 17:23] LABS: ABSOLUTE NEUTROPHILS 6.4 thou/uL (1.4-8.2); LARGE PLATELETS RARE; PLATELET COUNT 44 thou/uL (150-400)
[2020-12-10] VITALS (31 sets, daily range): BP systolic 109–132; BP diastolic 62–81
[2020-12-10 05:12] LABS: HEMOGLOBIN 9.6 gm/dL (14.0-18.0); MCHC 32.4 g/dL (28.0-37.0)
[2020-12-10 05:14] LABS: HEMATOCRIT 29.7 % (42.0-52.0); MCH 27.5 pg (26.0-34.0); MCV 85.1 fL (80.0-100.0); RBC 3.49 mil/uL (4.50-6.00); RDW 14.7 % (10.5-14.5)
[2020-12-10 05:18] LABS: ALBUMIN 1.9 g/dL (3.4-5.0); CALCIUM 6.9 mg/dL (8.5-10.1); CREATININE 1.8 mg/dL (0.7-1.3); PHOSPHORUS 2.6 mg/dL (2.5-4.9)
--- NOTE | 2020-12-10 07:59 | NUR ---
[facility] 2200. PT IN FROM SURGERY S/P DIEGO I/D OF WOUND.A/O TO PERSON ONLY BUT EASILY REDIRECTED. DENIES ANY PAIN. ASSESSMENT CHARTED. SLOW PROGRESS TOWARDS POC. DIEGO DRESSING PULLED OFF BY PT AND REDRESSED WITH GAUZE AND KERLIX OVER PACKING. WOUND APPEARS RED AND WELL APPROXIMATED. PLAN IS TO CONTINUE TO MONITOR LOC/INFECTION AND CONTINUE WITH ABX THERAPY. WILL CONTINUE TO MONITOR AND FOLLOW WITH POC
[2020-12-10 13:33] LABS: HEMATOCRIT 29.9 % (42.0-52.0); MCH 28.1 pg (26.0-34.0); MCHC 33.4 g/dL (28.0-37.0); MCV 83.9 fL (80.0-100.0); RBC 3.56 mil/uL (4.50-6.00); RDW 14.5 % (10.5-14.5); WBC 7.7 thou/uL (4.0-11.0)
[2020-12-10 13:50] LABS: CALCIUM 7.6 mg/dL (8.5-10.1); CREATININE 1.7 mg/dL (0.7-1.3); MAGNESIUM 2.2 mg/dL (1.8-2.4); POTASSIUM 3.8 mmol/L (3.5-5.1)
[2020-12-10 14:33] LABS: ABSOLUTE NEUTROPHILS 6.4 thou/uL (1.4-8.2)
[2020-12-10 14:41] LABS: ANISOCYTOSIS SLIGHT
[2020-12-10 14:42] LABS: POLYCHROMASIA 1+
[2020-12-10 14:44] LABS: PLATELET COUNT 50 thou/uL (150-400)
--- NOTE | 2020-12-10 18:10 | NUR ---
PT AWAKE AND ALERT, BUT STILL VERY CONFUSED, IMPULSIVE AND ARGUMENTATIVE AT TIMES. PT REQUIRES INCREASED OBSERVATION FOR HIGH FALL RISK. VS HAVE REMAINED STABLE AND URINE OUTPUT HAS BEEN EXCELLENT. PT PROGRESSING TOWARD GOALS ADEQUATELY.
[2020-12-11 00:01] VITALS: BP 127/79
[2020-12-11 02:00] VITALS: BP 122/70
--- NOTE | 2020-12-11 03:08 | NUR ---
ASSUMED CARE AT 1900, ASSESSMENT COMPLETED. PT DENIED SOB, PAIN, OR NAUSEA. TALKS TO HIMSELF, OCCASIONALLY YELLS, HAS NOT TRIED TO GET OUT OF BED THIS SHIFT. IV ABX INFUSING OVERNIGHT. GOOD URINE OUTPUT, DARK YELLOW-BROWN COLOR W/BLOOD PRESENT. CALLED REPORT TO SHANNAN MORSE ON 4W AT 0230, PT TRANSPORTED BY BED OUT OF ICU AT 0250. PT LEFT UNIT IN STABLE CONDITION.
--- NOTE | 2020-12-11 05:21 | NUR ---
RECIEVED PT VIA BED FROM ICU , UPON ARRIVAL TO ROOM 461 PT EYE CLOSED MUMBLING PT PLACED ON TIME STUDY STATISTICIAN, SHOWS NSR , IV ZOSYN INFUSING WELL , POPE WITH ERIN COLORED URINE .WILL CONITNUE WITH CURRENT PLAN OF CARE, AND WILL REPORT CHANGES. AM LAB TO BE DRAWN.
[2020-12-11 07:11] LABS: HEMATOCRIT 27.8 % (42.0-52.0); HEMOGLOBIN 9.1 gm/dL (14.0-18.0); MCH 27.6 pg (26.0-34.0); MCHC 32.8 g/dL (28.0-37.0); MCV 84.2 fL (80.0-100.0); RDW 14.6 % (10.5-14.5)
[2020-12-11 07:41] LABS: ALBUMIN 1.8 g/dL (3.4-5.0); CALCIUM 7.8 mg/dL (8.5-10.1); CREATININE 1.4 mg/dL (0.7-1.3); PHOSPHORUS 2.2 mg/dL (2.6-4.7); POTASSIUM 3.5 mmol/L (3.5-5.1)
[2020-12-11 08:50] VITALS: BP 125/78
[2020-12-11 10:48] LABS: ABSOLUTE NEUTROPHILS 7.1 thou/uL (1.4-8.2)
[2020-12-11 10:52] LABS: ANISOCYTOSIS 1+
[2020-12-11 10:53] LABS: LARGE PLATELETS OCCASIONAL; PLATELET COUNT 54 thou/uL (150-400)
[2020-12-11 11:53] VITALS: BP 124/59
[2020-12-11 17:43] VITALS: BP 136/76
--- NOTE | 2020-12-11 20:21 | NUR ---
Assumed pt care this am, alert to self. Gave one unit od platelet that was ordered 12/09 in the ICU but was not given, informed and was asked to transfuse. No adverse reactions were noted. Hallucinations were noted late in the pm , earlier in the shift pt was lethargic and refused most meals.Pt ran a fever in the pm, informed blood cultures ordered samples sent to lab. Fc in place draining cheng colored urine. POC followed, fever resolved after tylenol was ginve in the pm. Endorsed to the night nurse.
--- NOTE | 2020-12-12 00:50 | NUR ---
ASSESSMENT COMPLETED. PT ALERT TO SELF, CONFUSED, TALKING TO SELF IN ROOM. PT IS VERY IMPULSIVE. PT REQUIRES FREQUENT MONITORING DUE TO CENTRAL LINE AND POPE IN PLACE. DRSG TO DIEGO IS C/D/I. URINE IS DARK BROWN-ALMOST LOOKS BLOOD TINGED. SOME TRACE EDEMA WELL DISCOLORATION TO BLE. PT SATTING AT 100% ON ROOM AIR. CONTINUES ON IV DEXTROSE WELL IV ABTS. AFEBRILE. TOOK HS MEDS WITH NO ISSUES. PT TALKING IN HIS SLEEP, AND CONSTANTLY TRIES TO JUMP OUT OF BED.
[2020-12-12 03:50] VITALS: BP 152/76
[2020-12-12 06:45] LABS: ALBUMIN 1.9 g/dL (3.4-5.0); CREATININE 1.4 mg/dL (0.7-1.3); PHOSPHORUS 2.7 mg/dL (2.5-4.9); POTASSIUM 3.3 mmol/L (3.5-5.1)
[2020-12-12 08:06] VITALS: BP 118/61
--- NOTE | 2020-12-12 12:13 | NUR ---
PT IS POD #2 I&D OF ARM. PT IS ON IV VAN AND ZOSYN. CM SPOKE WITH ERNESTO WINTER THIS AM AND PROVIDED HIM WITH AN UPDATE. CARE TEAM INDICATED THAT PT WILL LIKELY NEED PROLONGED IV ABX VAN AND ZOSYN AND WC UPON DC. 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 CM CALLED [facility] AND LEFT A VM WITH JOSE TYALOR. AWAITING RESPONSE. THEY ARE TO ORDER THERAPY. CM FOLLOWING REGARDING DC PLANNING. CARE TEAM MENTIONED POSSIBLE DC SATURDAY.
--- NOTE | 2020-12-12 14:32 | HC ---
[facility] [place] [address] CONSULTATION Name: VI HERNÁNDEZ Room #: 461-P ADM IN M.R.#: [id number] Admission: 12/09/20 Attend Phys: Keily Poe Discharge: Date of : 75 Report #: [id number] THIS REPORT FOR: cc: Miguel Bello MD, Dennis R MD Geha,Mando James MD ~ DATE OF SERVICE: 12/09/2020 INFECTIOUS DISEASE CONSULTATION REASON FOR CONSULTATION: I was asked to evaluate concerning severe sepsis and bacteremia. HISTORY OF PRESENT ILLNESS: The patient is a 45-year-old with underlying diabetes and schizophrenia, who lives in [facility], presents now with altered mental status, tachycardia for 24 hours. The patient was alert, but was a poor historian. Review with the patient, talking with nursing staff and review of the record completed the evaluation for his assessment. He has had no cough or sputum production. Denies any chest pain or palpitations. When he presented, however, he was tachycardic and hypotensive and received 4 liters of IV fluid, normal saline and has increased his urine output. He is also in acute kidney injury with a creatinine of 3.4 and has an indwelling Urbina catheter in place at this point. He does have a history of BPH and previous urinary tract infection. He had a CAT scan, which showed evidence of right hydronephrosis and bilateral kidney edema along with bladder wall thickening. He has had no report of any rash or wounds. CT imaging also showed evidence of inflammation in the left arm and upper chest with scattered gas evident. He, however, did not complain of any issues in this region. He had no report of trauma or IV use. He has had no nausea, vomiting or diarrhea. Denies any dysuria, back or flank pain. REVIEW OF SYSTEMS: A 14-point review of system was negative other than what has been described above. ALLERGIES: IBUPROFEN. MEDICATIONS: As noted on his MAR, having begun on vancomycin and ceftriaxone in the Emergency Room with vancomycin and Zosyn continued into the ICU. Tylenol, aspirin, famotidine, iron, lisinopril, Depakote, MiraLax, Cogentin, lorazepam, gabapentin, Seroquel, multivitamin, calcium, clozapine, metoprolol, Lupron, sertraline, glipizide, levothyroxine, Eliquis, Haldol. PAST MEDICAL HISTORY: Anemia, DVT, diabetes, depression, schizophrenia, hyperlipidemia, hypertension, hypothyroidism, BPH, obesity, [place] [address] CONSULTATION Name: VI HERNÁNDEZ Room #: 461-P [facility] IN M.R.#: [id number] Admission: 12/09/20 Attend Phys: Keliy Poe Discharge: Date of : 75 Report #: [id number] FAMILY HISTORY: Not available. SOCIAL HISTORY: Past smoker, no significant alcohol intake or IV drug use recorded. PHYSICAL EXAMINATION: VITAL SIGNS: He was afebrile, tachycardic, blood pressure was stable, obese. SKIN: Without rash. He did have some bruising to the left upper medial arm. I did not appreciate any tenderness, fluctuance. There is no adenopathy in the axilla. He had a right IJ catheter in place. He did have some tinea pedis bilaterally and chronic venous stasis changes to both lower extremities, right greater than left, had hypertrophic skin involving the dorsum of his distal right foot and toes 2 and 3. No surrounding cellulitis. HEENT: Eyes without scleral icterus or conjunctivitis. Mouth, gingival hyperplasia, multiple fractured teeth. NECK: Supple. LUNGS: Few crackles in the bases bilaterally without appreciable consolidation. HEART: Regular, without murmur. He was tachycardic. ABDOMEN: Obese, soft, nontender. No hepatosplenomegaly or mass appreciated. GENITOURINARY: External genitalia without mass or lesion with an indwelling Urbina catheter. RECTAL: Not performed. EXTREMITIES: Without clubbing, cyanosis or significant edema. NEUROLOGIC: Cranial nerves intact. Strength in the upper and lower extremities within normal limits. Mood without anxiety or depression. LABORATORY STUDIES: Reviewed, noting creatinine now at 2.8. INR 1.2. Hemoglobin 10.4, platelet 50,000. WBC 8.7. Urinalysis with rbc's, wbc's and bacteria. Blood cultures 1 of 2 showing gram-positive bacilli. Chest x-ray, basilar changes. CT scan of the chest, abdomen and pelvis showed evidence of cellulitis in left upper extremity with scattered air, right lower lobe infiltrate with more diffuse ground glass opacities, moderate right hydronephrosis with bilateral kidney edema, ileus with distended appendix. IMPRESSION: A 45-year-old with underlying history of diabetes and schizophrenia, presents with severe sepsis, acute kidney injury, anemia, thrombocytopenia, bacteremia with other findings of urinary tract infection, pneumonia and possible soft tissue infection in the left upper arm and chest. RECOMMENDATIONS: We will continue ICU support with IV fluids and broad antibiotic coverage including Zosyn and clindamycin. Obtain repeat blood cultures to confirm the gram-positive bacillus that was identified. Clostridium would be a concern here, although there was no tenderness, evidence of tissue loss or ischemia on examination. This area will need to be followed closely. [address] [address] CONSULTATION Name: VI HERNÁNDEZ Room #: 461-P ADM IN M.R.#: [id number] Admission: 12/09/20 Attend Phys: Keily Poe Discharge: Date of : 75 Report #: [id number] He will also have urine studies obtained for urine culture and follow his renal function closely. <ELECTRONICALLY SIGNED> By: Mando Rudolph MD 12/12/20 1432 1552 01 Mando Rudolph MD /nt
[2020-12-12 16:22] VITALS: BP 134/109
[2020-12-12 19:11] VITALS: BP 145/88
--- NOTE | 2020-12-12 20:06 | NUR ---
Assumed pt care this am, VS stable would eat when fed. K was replaced, PICC line patent and able to draw labs. Would have episodes of auditory and visual hallucinations. in place draining dark yellow urine had one bm this pm. Diet and medications are tolerated well. Endorsed to the night nurse. No signs or verbalizations of distress noted.
--- NOTE | 2020-12-13 03:30 | NUR ---
PT IS A/O X1 AND IS ON BEDREST. ROOM AIR. DENIES C/O PAIN OR DISCOMFORT. APPEARS ANXIOUS AND RESTLESS. TOSSES AND TURNS IN BED FREQUENTLY. POPE IN PLACE AND DRAINING YELLOW URINE. INCONTINENT OF BM X1. MEDICATIONS GIVEN PER MAR. VSS. AFEBRILE. FALL PRECAUTIONS IN PLACE, CALL LIGHT IS WITHIN REACH. PT IN ROOM NEAR NURSES STATION WITH FREQUENT CHECKS.
[2020-12-13 06:28] LABS: ALBUMIN 1.7 g/dL (3.4-5.0); CALCIUM 7.7 mg/dL (8.5-10.1); CREATININE 1.4 mg/dL (0.7-1.3); PHOSPHORUS 2.9 mg/dL (2.5-4.9); POTASSIUM 3.1 mmol/L (3.5-5.1)
[2020-12-13 08:15] VITALS: BP 152/75
--- NOTE | 2020-12-13 14:46 | NUR ---
REFERRAL FAXED TO [facility] RECEIVED CONFIRMATION AND SPOKE WITH JOSE IN ADM SHE RECEIVED REFERRAL AND WILL REVIEW.
--- NOTE | 2020-12-13 14:48 | NUR ---
REFERRAL SENT TO [facility]. CM ANSWERED QUESTIONS TO THEM REGARDING PT. CM SPOKE WITH PA AND [facility] HAD REACHED OUT THE HIM WELL. ANTICIPATING POSSIBLE DC TOMORROW. PT TO HAVE A CT SCAN THIS DAY. CM FOLLOWING REGARDING DC PLANNING.
--- NOTE | 2020-12-13 19:50 | NUR ---
PT EXTREMELY DROWSY AND HARD TO AROUSE ALL DAY. AFTERNOON PSCHY MEDS WERE PUT ON HOLD PER DR. DIAS. PT WAS MORE AWAKE AND ANSWERING QUESTIONS THIS EVENING AROUNG 1630PM. PT WAS TAKEN DOWN FOR CT SCAN OF THE ABDOMEN AFTER BEING AWAKE AND ALERT FOR COMMANDS. LOW APPETITE. AUDIO AND VIDUAL HALLUCINATIONS THROUGHOUT THE DAY. CONTINUE TO MONITOR.
[2020-12-13 20:00] VITALS: BP 165/93
--- NOTE | 2020-12-14 05:52 | NUR ---
Assumed pt care at 1900. A/OX2, drowsy but easily arousable. VSS.Pt having visual/auditory hallucinations noted. Cooperative with cares, pulled off dsg on LUE,replaced w/o any problems. Incontinent of bowels, garcia in place patent to DD with light yellow urine. Fall precautions in place,frequent checks on pt. resting quietly w/o any distress noted. Right jugular central line in place and patent.
[2020-12-14 06:35] LABS: ALBUMIN 1.7 g/dL (3.4-5.0); CREATININE 1.6 mg/dL (0.7-1.3); PHOSPHORUS 3.8 mg/dL (2.6-4.7); POTASSIUM 3.1 mmol/L (3.5-5.1)
[2020-12-14 08:06] VITALS: BP 157/93
--- NOTE | 2020-12-14 13:49 | NUR ---
PT HAD CT UROGRAM YESTERDAY. UROLOGY INDICATED CONCERNING FINDINGS PT IS TO HAVE NUC MED RENAL FUNCTION TEST TOMORROW. CM TO FOLLOW INDICATED WITH DC PLANNING.
--- NOTE | 2020-12-14 14:15 | NUR ---
Note Given: Y Facility List Provided:Y Facility Juanjo: None chosen at this time Ana Bertrand NP discussed BPCI with this pt 12/12/2020
[2020-12-14 18:38] LABS: URINE BILIRUBIN NEGATIVE (Negative); URINE BLOOD 1+ (Negative); URINE CLARITY CLEAR; URINE COLOR YELLOW; URINE GLUCOSE-RANDOM* NEGATIVE (Negative); URINE KETONES NEGATIVE (Negative); URINE LEUKOCYTES-REFLEX TRACE (Negative); URINE NITRITE-REFLEX NEGATIVE (Negative); URINE PROTEIN (DIPSTICK) NEGATIVE (Negative); URINE SPECIFIC GRAVITY <= 1.005 (1.005-1.035); URINE UROBILINOGEN 0.2 E.U./dl (0.2-1.0)
[2020-12-14 18:48] LABS: MUCUS 4-6 Moderate strn/LPF (None Seen); WBC CLUMPS Few (None Seen)
[2020-12-14 18:55] LABS: CRYSTALS None Seen /LPF (None Seen); SQUAMOUS 0-3 Few /LPF (0-3); URINE RBC 0-2 Rare /HPF (0-2); URINE WBC-REFLEX 0-5 Rare /HPF (0-5)
[2020-12-14 18:56] LABS: CASTS None Seen /LPF (None Seen)
[2020-12-14 19:45] VITALS: BP 151/70
--- NOTE | 2020-12-14 20:07 | NUR ---
Assumed pt care this am, vs stable. Minimal intake of meals in the am, had dinner. NPO midnight onwards for lasix renal scan tomorrow, eliqui on hold. as per urology. Calorie count started. POC followed with no signs or verbalizations of distress noted. Endorsed to the night nurse.
[2020-12-15 06:33] LABS: HEMATOCRIT 26.6 % (42.0-52.0); HEMOGLOBIN 8.8 gm/dL (14.0-18.0); MCH 27.5 pg (26.0-34.0); MCHC 33.1 g/dL (28.0-37.0); MCV 83.2 fL (80.0-100.0); PLATELET COUNT 181 thou/uL (150-400); RBC 3.19 mil/uL (4.50-6.00); RDW 14.9 % (10.5-14.5); WBC 8.8 thou/uL (4.0-11.0)
[2020-12-15 06:39] LABS: CALCIUM 8.1 mg/dL (8.5-10.1); CREATININE 1.4 mg/dL (0.7-1.3); POTASSIUM 3.4 mmol/L (3.5-5.1)
[2020-12-15 08:00] VITALS: BP 153/87
[2020-12-15 09:44] LABS: ABSOLUTE NEUTROPHILS 5.1 thou/uL (1.4-8.2); METAMYELOCYTES 1 %; NUCLEATED RBCS 2 /100WBC; PLATELET ESTIMATE NORMAL
--- NOTE | 2020-12-15 09:49 | NUR ---
calorie count ordered. Pt npo for breakfast. Start with lunch 12/15-12/17.
[2020-12-15 12:00] VITALS: BP 174/69
--- NOTE | 2020-12-15 14:38 | NUR ---
PT HAD NUC MED RENAL FUNCTION TEST DONE THIS AM. CARE TEAM INDICATED THAT IS NOT YET MEDICALLY STABLE TO DISCHARGE. PT'S NA IS HIGH WELL. CM NOTIFIED [facility] WHO IS FOLLOWING FOR POSSIBLE ADMISSION. CM FOLLOWING REGARDING DC PLANNING.
[2020-12-15 16:07] VITALS: BP 136/71
[2020-12-15 19:11] LABS: INR 1.45; PROTIME 15.5 Seconds (9.3-11.4)
--- NOTE | 2020-12-15 19:23 | NUR ---
Assumed pt care at 7am.Assessment completed.vss.Pt in bed too sleepy and sedated.Wet cold wash cloth applied to face to woke pt up for am care. Dr Haddad here,order noted.Pt kept npo for lasix renal scan that was done today.Received call from [facility].Order noted.Pt will be npo after mn for nephrostomy tube placement in IR in am.Pt on calorie ct from today till saturday.Pt has fair appetite.No inappropriate benavior noted this shift.Report off to noc rn.
[2020-12-15 21:39] VITALS: BP 138/71
[2020-12-16 05:15] LABS: ABSOLUTE NEUTROPHILS 7.2 thou/uL (1.4-8.2); ALBUMIN 1.8 g/dL (3.4-5.0); BASOPHILS 0.4 % (0.0-2.0); CALCIUM 8.2 mg/dL (8.5-10.1); CREATININE 1.4 mg/dL (0.7-1.3); EOSINOPHILS 2.6 % (0.0-3.0); HEMATOCRIT 27.3 % (42.0-52.0); LYMPHOCYTES 12.7 % (24.0-44.0); MCH 27.6 pg (26.0-34.0); MCV 83.5 fL (80.0-100.0); MONOCYTES 16.8 % (1.0-8.0); PHOSPHORUS 3.2 mg/dL (2.6-4.7); PLATELET COUNT 176 thou/uL (150-400); POLYS 67.5 % (36.0-66.0); POTASSIUM 3.6 mmol/L (3.5-5.1); RBC 3.27 mil/uL (4.50-6.00); RDW 14.6 % (10.5-14.5); WBC 10.7 thou/uL (4.0-11.0)
--- NOTE | 2020-12-16 05:35 | NUR ---
ASSUMED CARE OF PT AT SHIFT CHANGE. PT IS AOX1-2 AND NEEDS MUST BE ANTICIPATED. FALL PRECAUTION IN PLACE. IVF AND IV ABX CONTINUED. PT PLACED NPO AT MIDNIGHT FOR PROCEDURE IN THE AM. ASSESSMENT CHARTED. PT SLEPT MOST OF THE SHIFT. WILL CONTINUE TO MONITOR.
--- NOTE | 2020-12-16 11:46 | NUR ---
Assumed pt care at 7am.Pt in bed sound asleep as usual without distress s/s. Assessment completed.vss.Pt made npo for procedure scheduled in IR dept later today.Received call from [facility] about picking [facility] and withnessed by Aziza chu. Ivf saline lock .Prior to leaving the floor for procedure,complete pericare given with bed chage due to pt having bm.Pt left for procedure around 1100 per bed. Will continue to monitor.
--- NOTE | 2020-12-16 12:20 | NUR ---
CARE TEAM INDICATED THAT PT IS TO HAVE A NEPHROSTOMY TUBE PUT IN TODAY. PT IS TO HAVE A UROGRAM AFTER TUBE IS PLACED. CARE TEAM ANTICIPATINIG THAT PT WILL ALSO STILL NEED CONTINUED IV ABX UPON DC. CM UPDATED [facility]. THEY ARE ABLE TO ACCEPT ONCE MEDICALLY STABLE. CLINICAL UPDATE FAXED. CARE TEAM INDICATED DC EARLIEST SATURDAY. CM NOTIFIED [facility]. CM FOLLOWING REGARDING DC PLANNING.
--- NOTE | 2020-12-16 13:03 | NUR ---
FAXED CLINICAL UPDATES AND NEGATIVE COVID RESULT (12/14/20) TO [facility]. WILL CONFIRM WITH JOSE/LIAISON THAT SHE RECEIVED. [facility] P [phone]; FAX [phone]
--- NOTE | 2020-12-16 13:17 | NUR ---
Nutrition: Day 1 calorie count reveals intake from 2 meals as pt was NPO for the 3rd meal. Pt consumed 920 kcals and 63 gm protein meeting 42% kcal needs, 74% protein needs. Pt consumed 100% of one ensure this day. NPO today for procedure. Continue calorie count through saturday per provider.
[2020-12-16 21:00] VITALS: BP 136/83
--- NOTE | 2020-12-17 02:58 | NUR ---
PT CARE ASSUMED WITH PT IN BED SLEEPING AT 1900.PT IS A/O X2.PT HAS A RT NEPHROSTOMY DRAIN DARING OK WITH NO BLOOD.DRESSING OVER NEPHROSTOMY SITE C/D/I. .PT HAS A POPE IN PLACE .PT C/O PAIN IN ABD AND TYLENOL GIVEN FOR PAIN MANAGEMENT AND TEMPERATURE OF 99.6.PT HAS A RT IJ TRIPPLE LUMEN .PT IS ACCUCHECK ACHS WITH SSI.WILL CONTINUE TO MONITOR PER POC
[2020-12-17 08:41] VITALS: BP 142/60
[2020-12-17 10:39] LABS: URINE BILIRUBIN NEGATIVE (Negative); URINE BLOOD 3+ (Negative); URINE CLARITY SL CLOUDY; URINE COLOR LIGHT PINK; URINE GLUCOSE-RANDOM* NEGATIVE (Negative); URINE KETONES NEGATIVE (Negative); URINE LEUKOCYTES-REFLEX TRACE (Negative); URINE NITRITE-REFLEX NEGATIVE (Negative); URINE PROTEIN (DIPSTICK) 1+ (Negative); URINE UROBILINOGEN 0.2 E.U./dl (0.2-1.0)
[2020-12-17 10:47] LABS: BACTERIA-REFLEX 1-9 Few /HPF (None Seen); CASTS None Seen /LPF (None Seen); CRYSTALS None Seen /LPF (None Seen); SQUAMOUS None Seen /LPF (0-3); URINE WBC-REFLEX 0-5 Rare /HPF (0-5)
[2020-12-17 12:13] LABS: CALCIUM 8.3 mg/dL (8.5-10.1); CREATININE 1.2 mg/dL (0.7-1.3); POTASSIUM 4.7 mmol/L (3.5-5.1)
[2020-12-17 17:06] VITALS: BP 121/63
[2020-12-17 19:15] VITALS: BP 132/80
--- NOTE | 2020-12-17 19:19 | NUR ---
Assumed pt care this am, VS stable , more awake today and responsive compared to previois days. FC draiing light yellow urine, right percutaneous nephrostomy in place draiing yellow urine. IV fluids initially running at 250, informed MD of K level currently at 4.7 changed rate to 200 fluids are a still D5W KCL. Diet adn medications are tolerated well. Had 2 large BM's today. POC followed with no signs or verbalizations of distress noted. Wound care on his left upper arm done and dressing changed. POC followed with nos signs or verbalizations of distress noted,
--- NOTE | 2020-12-18 02:57 | NUR ---
PT CARE ASSUMED WITH PT IN BED SLEEPING AT 1900.PT IS A/O X2.PT HAS A NEPROSTOMY IN ON RT KIDNEY AND DRAINING OK.PT HAS A POPE CATHETER IN PLACE.PT APPEARED TO BE IN NO ACUTE DISTRESS.PT HAS A RT IJ TRIPPLE LUMEN WITH D5W /20MEQ AT 200CC/HR.WILL CONTINUE TO MONITOR PER POC
[2020-12-18 10:15] LABS: CALCIUM 8.8 mg/dL (8.5-10.1); CREATININE 1.2 mg/dL (0.7-1.3); POTASSIUM 5.3 mmol/L (3.5-5.1)
[2020-12-18 17:00] VITALS: BP 135/59
--- NOTE | 2020-12-18 20:16 | NUR ---
Assumed pt care this am, Lethargic and sleepy, minimal intake for meals for this shift. Had a BM, bed bath and total bed change done. Nephrostomy in place and FC patent. POC followed with no signs or verbalizations of distress noted. Refused to take pm medications and meals. Endorsed to the night nurse. Wound care done. POC followed with no signs or verbalizations of distress noted.
[2020-12-18 20:23] VITALS: BP 111/56
--- NOTE | 2020-12-18 21:28 | HC ---
[facility] [place] [address] CONSULTATION Name: VI HERNÁNDEZ Room #: 461-P ADM IN M.R.#: [id number] Admission: 12/09/20 Attend Phys: Keily Poe Discharge: Date of : 75 Report #: [id number] THIS REPORT FOR: cc: Miguel Bello MD, Dennis R MD Al-Lisa,Rad Phillips MD ~ DATE OF SERVICE: 12/09/2020 REASON FOR CONSULTATION: Elevated creatinine. REASON FOR PRESENTATION: Not feeling well. HISTORY OF PRESENT ILLNESS: Limited given the patient's current mental status. The patient is known to have diabetes, hypertension, hyperlipidemia, depressive disorder. The patient was sent from his facility due to lethargy, increased weakness. He endorses nausea and vomiting. He denies any fever or chills. He was found to have an acute kidney injury with elevated creatinine at 3.4 as of yesterday. Urbina catheter was inserted and his creatinine was down to 2.8. He had a CT of his abdomen, chest and pelvis and this revealed multiple abnormalities. He was also found to have an acute cellulitis of his left upper extremity. The patient was admitted to the Intensive Care Unit with appropriate IV fluid resuscitation. Creatinine has started to trend down as of this morning to 2.8. From the renal perspective, we had some laboratory values on the patient back in 2008 and he had normal kidney function to start with. CT abdomen from this admission revealed significant hydronephrosis, unilateral. MEDICATIONS: 1. Eliquis. 2. Metoprolol. 3. Gabapentin. 4. Clonazepam. 5. Levothyroxine. 6. Lisinopril. ALLERGIES: IBUPROFEN. FAMILY HISTORY: Not able to verify given the patient's current mental status. REVIEW OF SYSTEMS: Not able to verify given the patient's current mental status. SOCIAL HISTORY: He came from a nursing facility. This is all what is available. [facility] [address] [place] [address] CONSULTATION Name: VI HERNÁNDEZ Room #: 461-P [facility] IN [facility].#: [id number] Admission: 12/09/20 Attend Phys: Keily Poe Discharge: Date of : 75 Report #: [id number] PAST MEDICAL HISTORY: Listed in his medical history forms the following medical problems. 1. DVT ____. 2. Diabetes mellitus. 3. Schizophrenia. 4. Hyperlipidemia. 5. Hypothyroidism. PHYSICAL EXAMINATION: GENERAL: Alert, disoriented. VITAL SIGNS: Blood pressure is 106/50. He was very hypotensive when he came in yesterday with a blood pressure of 97/48. HEAD AND NECK: No jugular venous distention, no bruit, no thyromegaly. CHEST: No crackles. CARDIOVASCULAR: No rub. ABDOMEN: Soft, nontender. EXTREMITIES: Lower extremities, +1 edema. Upper extremities, cellulitis of the left upper extremity. LABORATORY DATA: White blood cell count is 8.7, platelet is 50,000. Sodium is 145, potassium is 3.1, chloride is 112, BUN is 39, creatinine is 2.8. CT reviewed, significant unilateral hydronephrosis on the right side. Significant cellulitis of the left upper extremity. ASSESSMENT, IMPRESSION AND PLAN: 1. Acute kidney injury. 2. Severe sepsis. 3. Cellulitis of the left upper extremity. 4. Thrombocytopenia. 5. Hydronephrosis, seems to be chronic. 6. The patient's acute kidney injury seems to be improving. His creatinine had started to go down significantly with the IV fluid. 7. This all seems to be an acute kidney injury related to his current septic episode. 8. Continue IV fluid. 9. Appropriate antibiotic as per the Infectious Disease. 10. Continue to monitor daily renal panel. 11. Avoid nephrotoxins. 12. Need urological evaluation given the CT finding. [place] [address] CONSULTATION Name: VI HERNÁNDEZ Room #: 461-P ADM IN M.R.#: [id number] Admission: 12/09/20 Attend Phys: Keily Poe Discharge: Date of : 75 Report #: [id number] back in 2019. Keep Urbina catheter in. We will continue to follow. <ELECTRONICALLY SIGNED> By: Rad Jama MD 12/18/20 2128 0738 1 Rad Jama MD /nt
--- NOTE | 2020-12-19 04:31 | NUR ---
ASSUMED CARE OF PT AT SHIFT CHANGE. PT IS AOX2 AND NEEDS MUST BE ASSUMED. FALL PRECAUTION IN PLACE. IVF AND IV ABX CONTIINUED. POPE AND NERPHROSTOMY ARE PATIENT. PT WAS ABLE TO GET COMFORTABLE AND SLEEP PART OF SHIFT. VSS AND NO S/S OF ACUTE DISTRESS. WILL CONTINUE TO MONITOR.
[2020-12-19 08:38] VITALS: BP 127/76
[2020-12-19 11:05] LABS: CALCIUM 8.1 mg/dL (8.5-10.1); CREATININE 1.2 mg/dL (0.7-1.3); POTASSIUM 4.4 mmol/L (3.5-5.1)
[2020-12-19] MEDS ORDERED: MIRALAX17 GM PO (13:20)
[2020-12-19] MEDS ORDERED: FLOMAX0.4 MG PO (13:20)
--- NOTE | 2020-12-19 14:18 | NUR ---
FAXED CLINICAL UPDATE TO [facility] SPOKE WITH JOSE IN ADM SHE RECEIVED UPDATE AND CAN ACCEPT PT BACK TODAY AT DISCHARGE.
[2020-12-19 16:00] VITALS: BP 125/65
[2020-12-19] MEDS ORDERED: CEFAZOLIN 1GM VI1 G1 IV (16:00)
--- NOTE | 2020-12-19 16:16 | NUR ---
CARE TEAM INDICATED THAT PT IS MEDICALLY STABLE TO DC TO [facility] THIS DAY. CHART COPY ORDERED. ORDERS FAXED. TRANSPORT WITH [facility] FOR [id number]. PT AND GUARDIAN ERNESTO WINTER NOTIFIED AWARE AND AGREEABLE. [facility] INDICATED THAT THEY AREN'T ABLE TO PROVIDE PT'S CLOZAPINE THEY AREN'T PART OF THE REMS PROGRAM. CM NOTIFIED [facility]ARDIAN. CM SPOKE WITH RUBENS FISH HATCHERY SUPERVISOR AND CLAUDIA GARCIA AND THEY INDCIATED THAT THEY COULD PROVIDE PT'S CLOZAPINE TO [facility] FOR THEM TO ADMINISTER. CLAUDIA IS TO BRING IT TO [facility] THIS EVENING OR TOMORROW EVENING. CM NOTIFEID [facility] LIASION AND [facility]. NO OTHER CM INTERVENTION INDICATED. CASE CLOSED.
--- NOTE | 2020-12-19 16:17 | NUR ---
PT DISCHARGING TODAY TO [facility] FAXED DC ORDERS/SUMMARY TO FACILITY SPOKE WITH JOSE IN ADM SHE RECEIVED ORDERS. THEY DO NOT HAVE TRANSPORT AVAILABLE SO TRANSPORT ARRANGED WITH [facility] FOR [id number] TODAY. SW NOTIFIED PT'S GUARDIAN UNIT NOTIFIED AND CHART COPY PER US. RN TO CALL REPORT TO [phone].
--- NOTE | 2020-12-19 17:12 | NUR ---
Assumed pt care at 7am.Pt in bed sleeping but arousable.Assessment completed. vss.Pt woke up around 0830 for breakfast.Am meds given and well tolerated. Complete bed bath and bed change done by rifle case repairer. Pt has large loose stool allover the bed. Pericare given.Dr Haddad and Ronni here,dc order noted. Report given to Yina chu at [facility] prior to pt dc per van at 1700.
== END 2020-12-19 17:00 | DRG 853 ==
LOC: ER 17:58 → ICU 12-09 01:01 → EROBS 12-09 01:01 → 2N 12-09 03:32 → ICU 12-09 03:40 → 4W 12-11 03:23
PROVIDERS: Emergency Medicine; Hospitalist; Internal Medicine Pulmonary Disease; Nurse Practitioner Family; Physician Assistant; Specialist; Surgery; ADMIT Hospitalist; ATTEND Hospitalist
DX: A41.50 Gram-negative sepsis, unspecified (principal); G92 Toxic encephalopathy; N17.9 Acute kidney failure, unspecified; L03.114 Cellulitis of left upper limb; N13.6 Pyonephrosis; E87.0 Hyperosmolality and hypernatremia; E03.9 Hypothyroidism, unspecified; F20.9 Schizophrenia, unspecified; R65.20 Severe sepsis without septic shock; F32.9 Major depressive disorder, single episode, unspecified; I10 Essential (primary) hypertension; D69.6 Thrombocytopenia, unspecified; E11.9 Type 2 diabetes mellitus without complications; I95.9 Hypotension, unspecified; D64.9 Anemia, unspecified; N40.0 Benign prostatic hyperplasia without lower urinary tract symptoms; R31.0 Gross hematuria; E87.6 Hypokalemia; J43.9 Emphysema, unspecified; Z20.822 Contact with and (suspected) exposure to COVID-19; Z88.8 Allergy status to other drugs, medicaments and biological substances; Z79.84 Long term (current) use of oral hypoglycemic drugs; Z79.82 Long term (current) use of aspirin; Z79.01 Long term (current) use of anticoagulants; Z79.899 Other long term (current) drug therapy; Z86.718 Personal history of other venous thrombosis and embolism
CPT/HCPCS: 10045; 10047; 10078; 50101; 50386; 57091; 62110; 62900

== ENCOUNTER 2021-01-02 12:15 | Inpatient (IN) | payer OTHER ==
[~2021-01-02] VITALS: Ht 182.9 cm; Wt 113.4 kg
[~2021-01-02 12:15] MED LIST changes: +CEFAZOLIN 1GM VI1 G1 IV; +DEPAKOTE 250MG250 MG PO; +FLOMAX0.4 MG PO; -LOPRESSOR25 PO; +METOPROLOL TART25 MG PO; +MIRALAX17 GM PO
[2021-01-02 12:16] VITALS: BP 120/72
[2021-01-02 12:49] LABS: URINE BILIRUBIN NEGATIVE (Negative); URINE BLOOD 3+ (Negative); URINE CLARITY CLOUDY; URINE COLOR YELLOW; URINE GLUCOSE-RANDOM* NEGATIVE (Negative); URINE KETONES NEGATIVE (Negative); URINE NITRITE-REFLEX NEGATIVE (Negative); URINE PROTEIN (DIPSTICK) TRACE (Negative); URINE UROBILINOGEN 0.2 E.U./dl (0.2-1.0)
[2021-01-02 13:00] LABS: URINE LEUKOCYTES-REFLEX 1+ (Negative)
[2021-01-02 13:05] LABS: SQUAMOUS 0-3 Few /LPF (0-3)
[2021-01-02 13:06] LABS: BACTERIA-REFLEX 1-9 Few /HPF (None Seen); CASTS None Seen /LPF (None Seen); CRYSTALS None Seen /LPF (None Seen); URINE RBC >20 Many /HPF (NONE SEEN)
[2021-01-02 13:43] LABS: ABSOLUTE NEUTROPHILS 15.1 thou/uL (1.4-8.2); BASOPHILS 0.3 % (0.0-2.0); EOSINOPHILS 0.1 % (0.0-3.0); HEMATOCRIT 30.5 % (42.0-52.0); LYMPHOCYTES 4.7 % (24.0-44.0); MCH 27.1 pg (26.0-34.0); MCHC 32.8 g/dL (28.0-37.0); MCV 82.4 fL (80.0-100.0); MONOCYTES 8.2 % (1.0-8.0); PLATELET COUNT 113 thou/uL (150-400); POLYS 86.7 % (36.0-66.0); RBC 3.71 mil/uL (4.50-6.00); RDW 15.5 % (10.5-14.5); WBC 17.4 thou/uL (4.0-11.0)
--- NOTE | 2021-01-02 13:48 | NUR ---
VAT CALLED FOR PIV, PT HAS SCAR TISSUE WITH VESSELS DIFFICULT PIV, WON'T THREAD. LAB OBTAINED. [facility] HAS NO BR BUT DOES FLUSH. IR ADVISED FOR PT DUE TO NON COMPRESSABLE VESSELS WITH US
[2021-01-02 13:50] LABS: ANION GAP 8 mmol/L (7-16); BUN 17 mg/dL (7-18); CALCIUM 9.3 mg/dL (8.5-10.1); CHLORIDE 103 mmol/L (98-107); CO2 28 mmol/L (21-32); CREATININE 1.6 mg/dL (0.7-1.3); GLUCOSE 151 mg/dL (74-106); POTASSIUM 4.4 mmol/L (3.5-5.1); SODIUM 139 mmol/L (136-145)
[2021-01-02 13:56] LABS: ALBUMIN 2.4 g/dL (3.4-5.0); DIRECT BILIRUBIN < 0.1 mg/dL (<0.1-0.2); LIPASE 49 U/L (73-393); SGOT 14 U/L (15-37); SGPT 10 U/L (16-63); TOTAL BILIRUBIN 0.4 mg/dL (0.2-1.0); TOTAL PROTEIN 7.6 g/dL (6.4-8.2)
--- NOTE | 2021-01-02 16:43 | EKG ---
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 01/02/21 1643 1230 1230 Dean Sal MD, FACC /EPI
[2021-01-02 17:38] VITALS: BP 144/71
[2021-01-02 19:17] VITALS: BP 143/59
[2021-01-02 23:25] VITALS: BP 132/64
[2021-01-03 04:00] VITALS: BP 116/76
[2021-01-03 04:57] LABS: HEMATOCRIT 26.8 % (42.0-52.0); HEMOGLOBIN 8.8 gm/dL (14.0-18.0); MCH 27.5 pg (26.0-34.0); MCHC 32.7 g/dL (28.0-37.0); MCV 84.1 fL (80.0-100.0); PLATELET COUNT 70 thou/uL (150-400); RBC 3.19 mil/uL (4.50-6.00); RDW 15.5 % (10.5-14.5); WBC 13.5 thou/uL (4.0-11.0)
[2021-01-03 05:32] LABS: CREATININE 1.8 mg/dL (0.7-1.3); MAGNESIUM 1.3 mg/dL (1.8-2.4); POTASSIUM 3.9 mmol/L (3.5-5.1)
[2021-01-03 07:30] VITALS: BP 129/92
--- NOTE | 2021-01-03 07:52 | NUR ---
RECEIVED REPORT FROM DAY SHIFT RN.PATIENT LETHARGIC BUT EASILY AROUSABLE AND ABLE TO SWALLOW PILLS WHOLE WITH WATER.FEBRILE;TYLENOL GIVEN TWICE THIS SHIFT.IV FLUIDS AND ANTIBIOTICS IV STARTED;LACTIC ACID LEVEL IS NOW 1.5.DRESSING NOTED ON THE LEFT UPPER ARM AND RIGHT LOWER QUADRANT ON HIS BACK CLOSE TO THE FLANK AREA.UROLOGY WAS CONSULTED AND DR PEREZ CALLED BACK AND SAYS TO CALL IR AND THEY CAN BE ABLE TO FIX IT.MONITOR SHOWS SINUS TACHY IN THE 125'S.METOPROLOL GIVEN EARLY DIRECTED BY CRANE LADLE PERSON FILLING STATION LABORER.POC CONTINUED.
[2021-01-03 08:43] LABS: ABSOLUTE NEUTROPHILS 11.1 thou/uL (1.4-8.2); METAMYELOCYTES 1 %
[2021-01-03 08:44] LABS: ANISOCYTOSIS SLIGHT
[2021-01-03 08:45] LABS: POIKILOCYTOSIS SLIGHT
[2021-01-03 09:37] LABS: APTT 39.1 Seconds (24.5-32.8); INR 1.48; PROTIME 15.8 Seconds (10.5-12.1)
--- NOTE | 2021-01-03 11:17 | NUR ---
Received asleep on bed; lethargic but rousable- Dr Haddad informed re: pt's lethargy and she said it's pt's norm- no new orders obtained re: this. On MST; no complains and signs of chest pain, crushing sensation and heaviness. Assisted in ADLs. On NPO- mouth swab provided. On room air. Vital signs stable. On blood sugar monitoring, taken and recorded accordingly- with sliding scale insulin ordered. With garcia in place- draining well; output measured and recorded accordingly. With central line at R jugular- NS at 100cc/hr, infusing well; on IV antibiotics as well. Falls bundle in place. With cellulitis at L FA- dressing C/D/I. As per night RN; pt for replacement for nephrostomy tube which was dislodged/pulled out- As per urology- to consult IR re: replacement- IR called this AM- update given and said they might do procedure around lunch time; consent to be obtained, pt under legal guardianship- guardian's number given to IR nurse. IR nurse called back and said they are still a/w call back from pt's guardian/ consent- Dr Haddad informed re: this. As per IR nurse Dina- most likely, they will do procedure tomorrow, ok to resume diet today- Dr Haddad asked re: diet- may have carb controlled diet for lunch. Missed AM meds given- able to swallow meds w/o difficulty. No signs and complains of pain during assessment. To continue monitoring patient.
[2021-01-03 11:21] VITALS: BP 111/60
--- NOTE | 2021-01-03 11:33 | NUR ---
Case opened to follow for dc planning. Pt is known to cm from previous admissions. Most recently dc'd to [facility] on 12-19-20 and readmitted with dislodged nephro tube, UTI,sepsis and pneumonia. The [facility] liason has called for an update. Clinical faxed. They can accept him for readmission when stable to return to LTAC level of care. The pt's legal guardian is the [facility] Public admin. Their office has been notified of his readmission and nursing notes contact info was provided to the urologist for consent for replacement of his nephro tube. Clinical updated faxed to the PA's office as well. The pt is a residential care resident at [facility]. Dc plan at this time is to return to [facility]. Will follow.
[2021-01-03 15:40] VITALS: BP 122/71
[2021-01-03 19:50] VITALS: BP 124/64
--- NOTE | 2021-01-04 02:10 | NUR ---
PT SLEEPING. AROUSABLE. SWALLOWING MEDS AND DRINKING WATER WITH NO DIFFICULTIES. SR/ST ON TELEMETRY. ON ROOM AIR-NO SIGNS OF RESP DISTRESS.POPE WITH ERIN COLORED URINE WITH SOME SEDIMENTS. CONTINUES ON IVF AND IV ABTS. AFBRILE.DISCOLORATION TO BLE. DIEGO WITH DRSG INTACT.PT NPO AFTER MIDNOC-POSSIBLE NEPHROSTOMY PLACEMENT.NO FURTHER CONCERNS AT THIS TIME.
[2021-01-04 03:50] VITALS: BP 138/81
[2021-01-04 05:15] LABS: HEMATOCRIT 24.2 % (42.0-52.0); HEMOGLOBIN 7.9 gm/dL (14.0-18.0); MCH 27.8 pg (26.0-34.0); MCHC 32.6 g/dL (28.0-37.0); MCV 85.2 fL (80.0-100.0); RBC 2.84 mil/uL (4.50-6.00); RDW 15.4 % (10.5-14.5); WBC 8.8 thou/uL (4.0-11.0)
[2021-01-04 05:25] LABS: APTT 37.2 Seconds (24.5-32.8); INR 1.38; PROTIME 14.8 Seconds (10.5-12.1)
[2021-01-04 05:43] LABS: CALCIUM 8.1 mg/dL (8.5-10.1); CREATININE 1.3 mg/dL (0.7-1.3)
[2021-01-04 07:29] VITALS: BP 117/67
--- NOTE | 2021-01-04 12:50 | NUR ---
ASSUMED PT CARE THIS AM. PT VSS, A&OX2, WITH CONFUSION. PATIENT TALKING TO SELF AT SOME POINTS. IV PATENT, FLUIDS INFUSING. PATIENT HAD A BOWEL MOVEMENT THIS AM. REPORTING NO PAIN. PATIENT WITH A POPE CATHETER IN PLACE DRIANING WELL. BLOOD SUGAR BEING MONITORED. PATIENT ON TELEMETRY. PATIENT UP WITH ASSIST. IV PATENT, FLUIDS INFUSING. ABLE TO MAKE SOME NEEDS KNOWN, FREQUENTLY CHECKING ON PATIENT. FALL PRECAUTIONS ARE IN PLACE PATIENT CAN BE IMPULSIVE AT TIMES.
[2021-01-04 15:37] VITALS: BP 130/79
[2021-01-04 19:40] VITALS: BP 146/79
[2021-01-05 00:13] VITALS: BP 134/59
[2021-01-05 05:08] VITALS: BP 107/80
[2021-01-05 05:28] LABS: INR 1.13; PROTIME 12.2 Seconds (10.5-12.1)
[2021-01-05 07:57] VITALS: BP 147/76
--- NOTE | 2021-01-05 12:32 | NUR ---
Possible dc back to [facility] today. Update faxed to their DON Kelvin yesterday. They can accept the pt back and have been holding his room. No iv atb needed per ID. Nephro tube being replaced this afternoon in IR then he will likely be dc ready. Katie and Kelvin updated and they are awaiting final orders. Pt will need stretcher transport. Dc orders to be faxed to both the SNF and [facility] pa's office. Dermatology Teacher spoke with the in day kyle Will at the PA's office. He would like an update later this after if pt is being dc'd back to the SNF. They would like to use his SNF benefits if available for extra monitoring and therapy. Katie at [facility] to check his benefits. CM to follow up with all parties later today once he is cleared for dc.
[2021-01-05 16:00] VITALS: BP 151/75
[2021-01-05] MEDS ORDERED: AMOX TR-K CLV1 EAC4 PO (16:12)
--- NOTE | 2021-01-05 18:31 | NUR ---
ASSESSED AT START OF SHIFT. PT CONFUSED BUT REORIENTS EASILY AND IS COOPERATIVE W/ CARES WHEN REMINDED HE'S IN THE HOSPITAL. NPO THIS AM FOR NEPHROSTOMY TUBE REINSERTION BUT DR. COLMENARES UNABLE TO PLACE PT TRYING TO GET OUT OF BED EVEN AFTER CONSCIOUS SEDATION. MEDS GIVEN AFTER RETURNED TO ROOM. DECLINED DINNER AT THIS TIME STATING HE'D EAT LATER. DRINKING WATER WHEN OFFERED. URINE CLEAR, YELLOW W/ GOOD AMT. UROLOGY NOTIFIED AND DECISION TO NOT REINSERT TUBE PT IS MORE STABLE AND WILL DC POPE IN AM AND CHECK VOIDING PRIOR TO RETURNING TO HIS FACILITY.
[2021-01-05 19:25] VITALS: BP 148/72
--- NOTE | 2021-01-06 02:35 | NUR ---
is not aware, to call for assist out of bed. for a BM. he had an extralarge Bm this early am, loose, brown. pt has an incised open skin area to left upper arm. repacked and placed occlusive dressing on top. continues on iv fluids. denies pain. he is pleasantly confused, but does hve some hallucinations. he is very fearful of the area near the gloves containers. reassured him as neccessary. responds positively to directives. careplan reviewed.
[2021-01-06 03:57] VITALS: BP 124/55
[2021-01-06 07:00] VITALS: BP 135/80
--- NOTE | 2021-01-06 09:07 | HC ---
[facility] [place] [address] CONSULTATION Name: VI HERNÁNDEZ Room #: 204-P ADM IN M.R.#: [id number] Admission: 01/02/21 Attend Phys: Fidelina Haddad MD Discharge: Date of : 75 Report #: [id number] THIS REPORT FOR: cc: Miguel Bello MD, Dennis R MD Barry,Sammy Laws MD ~ DOC #: [id number] Sammy Viveros MD DATE OF SERVICE: 01/03/2021 INFECTIOUS DISEASE CONSULTATION ATTENDING PHYSICIAN: Dr. Haddad. REASON FOR EVALUATION: Febrile illness with encephalopathy. Known history of complicated urinary tract infection. HISTORY OF PRESENT ILLNESS: Chart reviewed, the patient examined. This is a 45-year-old gentleman known to our service, has multiple medical histories given his age, has diabetes mellitus, hypertension, hyperlipidemia and extensive psychiatric history, who was actually hospitalized roughly a month ago and was found to have a Proteus bacteremia felt to be on the basis of obstructive uropathy and complicated urinary tract infection. In addition, he had developed a Staph hominis bacteremia. Later in the course of the hospitalization, he was over at a long-term acute care facility and was having increased lethargy and fever. He apparently had removed his nephrostomy tube. At this point, he is quite somnolent, difficult to arouse. Initial urinalysis showed moderate pyuria with minimal bacteriuria. Chest x-ray showed mild right upper lobe infiltrate, there is question of pneumonitis. White count was elevated at 17.4. Lactic acid of 2.6. Procalcitonin of 3.05. Coronavirus testing was negative as was influenza antigen testing. CT abdomen and pelvis showed mild right hydronephrosis and hydroureter. No obstructive stones. Blood cultures today are sterile thus far and urine culture with low numbers described as normal genitourinary mario. He is scheduled to undergo replacement of his nephrostomy tube later today. He is empirically started on piperacillin and tazobactam. ALLERGIES: IBUPROFEN. MEDICATIONS: Include metoprolol, levothyroxine, lorazepam, benztropine, pantoprazole, tamsulosin, divalproex, clozapine, Zosyn, gabapentin, ____, ondansetron. PAST MEDICAL HISTORY: Include diabetes mellitus, hypertension, hypothyroidism, complicated urinary tract with hydronephrosis, history of schizophrenia, depression, chronic anemia, recent history of septicemia. [address] [address] CONSULTATION Name: VI HERNÁNDEZ Room #: 204-P [facility] IN .R.#: [id number] Admission: 01/02/21 Attend Phys: Fidelina Haddad MD Discharge: Date of : 75 Report #: [id number] SOCIAL HISTORY: Not available. FAMILY HISTORY: Noncontributory. REVIEW OF SYSTEMS: Not obtained. PHYSICAL EXAMINATION: GENERAL: He appears chronically ill and undernourished. He is somnolent, unable to arouse in spite of verbal and tactile stimuli. VITAL SIGNS: Temperature 99.4, had a T-max overnight of 103.1, pulse 98, respirations 18, and blood pressure 129/92. SKIN: Warm, dry, no rashes. HEENT: Normocephalic. NECK: Supple. LUNGS: Diminished breath sounds. Few scattered crackles. HEART: Borderline tachycardic, regular, not appreciate murmur. ABDOMEN: Somewhat distended, firm, no apparent peritoneal signs. GENITOURINARY AND RECTAL: Deferred. LABORATORY DATA: PT 15.8, INR of 1.48. CBC: White count 13.5, H and H 8.8 and 26.8, platelets of 70. Urine cultures as described above. Blood culture sterile thus far. Electrolytes: Sodium 141, potassium 3.9, chloride 106, bicarbonate 24, anion gap of 11, BUN and creatinine 18 and 1.8. Estimated GFR 50. Serial lactic acids have slowly decreased most recently 1.5. Coronavirus testing was negative. ASSESSMENT AND PLAN: Febrile illness. Patient was recently hospitalized with septicemia due to 2 different organisms, 2 different timeframes. Also, has really complicated urinary tract infection. ____ removal of his nephrostomy tube, would suspect this is a source of the fevers, although cannot entirely exclude a pneumonitis, certainly a risk for aspiration, the altered sensorium. Thus far, he has not worsened since admission. We will continue piperacillin-tazobactam and review the previous cultures. ____ was susceptible as was the Staphylococcus hominis. He remains quite tenuous at this point. We will continue to monitor expectantly as he wakes up, initiate incentive spirometry. MD TY Milner/APRIL/ANGLE [address] [address] CONSULTATION Name: VI HERNÁNDEZ Room #: 204-P ADM IN M.R.#: [id number] Admission: 01/02/21 Attend Phys: Fidelina Haddad MD Discharge: Date of : 75 Report #: [id number] <ELECTRONICALLY SIGNED> By: Sammy Viveros MD 01/06/21 0907 09 2238 Sammy Viveros MD /nt
--- NOTE | 2021-01-06 09:40 | NUR ---
BPCI letter provided to patient, lives at [facility]
--- NOTE | 2021-01-06 10:14 | NUR ---
PT IS AXOX1, PLEASANT, CONFUSED, EASY TO REDIRECT. PT SOMNOLENT THIS AM. POPE D/C FOR URINARY STUDY PER UROLOGY PA. WILL BLADDER SCAN PT AT NOON TO ASSESS FOR POSSIBLE RETENTION. DR DIAS CONSULTED. POSS D/C PENDING RESULTS. FALL PRECAUTIONS IN PLACE.
[2021-01-06 12:11] VITALS: BP 119/62
--- NOTE | 2021-01-06 13:57 | NUR ---
Pt cleared by urology and the attending for dc to SNF at [facility]. Nancy and Constantin Will from the PA's office notified of above and both in agreement for pt to return there with SNF orders. F/u appt made [facility] at [facility] OP office on 01/[address] Gilmore. Nursing to call report. Dc orders are being faxed to both The SNF and the legal guardian JCPA's office. W/c van transport arranged per [facility] and [facility] to facilitate dc at 2:30 today. Chart copy to be sent with the pt. Nephro tube not replaced and pt passed voiding trials and bladder scan this morning. Now on PO atb. Therapy requested at the SNF. BPCI liason notified.
== END 2021-01-06 14:52 | DRG 871 ==
LOC: ER 12:15 → EDBD 12:15 → EROBS 16:59 → 2N 16:59
PROVIDERS: Nurse Practitioner; Physician Assistant; ADMIT Hospitalist; ATTEND Hospitalist
DX: A41.1 Sepsis due to other specified staphylococcus (principal); G92 Toxic encephalopathy; J18.9 Pneumonia, unspecified organism; N17.9 Acute kidney failure, unspecified; L03.114 Cellulitis of left upper limb; N13.6 Pyonephrosis; E46 Unspecified protein-calorie malnutrition; R65.20 Severe sepsis without septic shock; S41.102A Unspecified open wound of left upper arm, initial encounter; Z20.822 Contact with and (suspected) exposure to COVID-19; D32.9 Benign neoplasm of meninges, unspecified; E78.5 Hyperlipidemia, unspecified; E03.9 Hypothyroidism, unspecified; N18.9 Chronic kidney disease, unspecified; E11.22 Type 2 diabetes mellitus with diabetic chronic kidney disease; F32.9 Major depressive disorder, single episode, unspecified; F20.9 Schizophrenia, unspecified; I12.9 Hypertensive chronic kidney disease with stage 1 through stage 4 chronic kidney disease, or unspecified chronic kidney disease; N18.30 Chronic kidney disease, stage 3 unspecified; D69.6 Thrombocytopenia, unspecified; D64.9 Anemia, unspecified; Z09 Encounter for follow-up examination after completed treatment for conditions other than malignant neoplasm; Z86.718 Personal history of other venous thrombosis and embolism; Z88.6 Allergy status to analgesic agent; Z68.33 Body mass index [BMI] 33.0-33.9, adult; X58.XXXA Exposure to other specified factors, initial encounter; Y93.89 Activity, other specified; Y92.89 Other specified places as the place of occurrence of the external cause; Y99.8 Other external cause status
CPT/HCPCS: 10081